=== PATIENT | male | born 1930 | race Caucasian/White ===

== ENCOUNTER 2016-07-22 11:41 | Inpatient (IN) | payer MEDICARE, OTHER ==
[~2016-07-22] VITALS: Ht 185.4 cm; Wt 122.0 kg
[~2016-07-22 11:41] MED LIST: ACET325T9 PO; AMLO2.5T PO; ASPI81TA2 PO; CHOL10003 PO; CITA10TA4 PO; DOCU-27 PO; DONE10TA34 PO; GABA-586 PO; GLUC100018 PO; GUAI-297 PO; HYDR-2666 PO; LEVO100T5 PO; LEVO150T5 PO; LISI2.5T PO; LORA10TA3 PO; MAGN400O4 PO; METO-313 PO; METO25TA9 PO; OMEG1CAP43 PO; ONDA8TAB9 PO
[2016-07-22 17:59] VITALS: BP 197/76
[2016-07-22] MEDS ORDERED: VANCOMYCIN PER PHARMACY MC ONE (18:15)
[2016-07-22] MEDS ORDERED: VANCOMYCIN 2 GM in IV NORMAL SALINE 500ML BAG 500 ML IV ONE (18:30)
[2016-07-22 18:58] LABS: BASO # 0.1 x10^3/uL (0.0-0.2); BASO % 1 % (0-3); EOS % 2 % (0-3); HEMATOCRIT 36.2 % (39.0-53.0); HEMOGLOBIN 12.1 g/dL (13.0-17.5); LYMPH # 0.6 x10^3/uL (1.0-4.8); LYMPH % 7 % (24-48); MEAN CORPUSCULAR HEMOGLOBIN 33 pg (25-35); MEAN CORPUSCULAR HGB CONC 33 g/dL (31-37); MEAN CORPUSCULAR VOLUME 98 fL (79-100); MONO % 12 % (0-9); NEUT % 78 % (31-73); PLATELET COUNT 153 x10^3/uL (140-400); RED BLOOD COUNT 3.71 x10^6/uL (4.30-5.70); RED CELL DISTRIBUTION WIDTH 14.1 % (11.5-14.5)
[2016-07-22 19:00] VITALS: BP 148/73
[2016-07-22] MEDS: VANCOMYCIN PER PHARMACY MC PRN (19:58)
[2016-07-22] MEDS ORDERED: SODIUM PHOSPHATES 19/7GM 133 ML ENEMA. RC PRN (20:00)
[2016-07-22] MEDS ORDERED: MAGNESIUM HYDROXIDE 2,400 MG/30 ML ORAL.SUSP. PO PRN (20:00)
[2016-07-22 20:04] LABS: ALBUMIN 2.7 g/dL (3.4-5.0); ALBUMIN/GLOBULIN RATIO 0.6 (1.0-1.7); CALCIUM 8.3 mg/dL (8.5-10.1); CREATININE 1.5 mg/dL (0.7-1.3); GFR 44.3; POTASSIUM 3.8 mmol/L (3.5-5.1); TOTAL BILIRUBIN 0.7 mg/dL (0.2-1.0)
[2016-07-22] MEDS ORDERED: MAGN400O4 PO (20:07)
[2016-07-22] MEDS ORDERED: AMOX1TAB61 PO (20:07)
[2016-07-22] MEDS ORDERED: LORA10TA68 PO (20:07)
[2016-07-22] MEDS ORDERED: OMEP20TA PO (20:07)
[2016-07-22] MEDS ORDERED: MEMA10TA PO (20:07)
[2016-07-22] MEDS ORDERED: MULT-245 PO (20:07)
[2016-07-22] MEDS ORDERED: NA P133E2 RC (20:07)
[2016-07-22] MEDS: AMOXICILLIN/K CLAV 875/125MG TABLET. PO SCH (21:05)
[2016-07-22] MEDS: HYDROCODONE/APAP 5/325MG TABLET. PO SCH (21:07)
[2016-07-22] MEDS: MEMANTINE 10 MG TABLET. PO SCH (21:07)
[2016-07-22] MEDS: CHOLECALCIFEROL (VITAMIN D3) 1,000 UNIT TABLET PO SCH (21:07)
[2016-07-22 22:30] VITALS: BP 144/59
[2016-07-23 03:00] VITALS: BP_SYST 114; BP_SYST 147; BP_DIAS 67; BP_DIAS 72
[2016-07-23] MEDS: PANTOPRAZOLE 40 MG TABLET.DR. PO SCH (06:06)
[2016-07-23] MEDS: LEVOTHYROXINE 125 MCG TABLET PO SCH (06:07)
[2016-07-23 07:00] VITALS: BP 164/82
--- NOTE | 2016-07-23 08:09 | PDOC ---
GENERAL General: see dictated H&P. Problems: VITAL SIGNS Vital Signs: Vital Signs Date Time Temp Pulse Resp B/P Pulse Ox O2 Delivery O2 Flow Rate FiO2 07/23/16 07:00 98.1 70 16 164/82 95 Room Air 98.1 I & O I & O Intake and Output 07/23/16 07:00 Intake Total 1050 ml Balance 1050 ml Intake Oral 550 ml IV Total 500 ml # Voids 1 ALLERGIES Allergies: Allergies Coded Allergies Type Severity Reaction Last Updated Verified Yppgqms-Zjl-Lhw Reductase Inhibitor Allergy Intermediate 10/31/15 Yes cholestyramine Allergy Intermediate 10/31/15 Yes ezetimibe Allergy Intermediate 10/31/15 Yes niacin Allergy Intermediate 10/31/15 Yes rosuvastatin Allergy Intermediate 04/06/15 Yes simvastatin Allergy Intermediate 04/06/15 Yes MEDS Medications: Current Medications Medications (Trade) Dose Ordered Sig/Samia Start Time Stop Time Status Last Admin Dose Admin Acetaminophen/ Hydrocodone Bitart (Lortab 5/325) 1 tab TID 07/22/16 21:00 07/22/16 21:07 1 TAB Amlodipine Besylate (Norvasc) 2.5 mg DAILY 07/23/16 09:00 Amoxicillin/ Clavulanate Potassium (Augmentin 875/ 125mg) 1 tab BID 07/22/16 21:00 07/22/16 21:05 1 TAB Cetirizine HCl (Zyrtec) 10 mg DAILY 07/23/16 09:00 Docusate Sodium (Colace) 100 mg DAILY 07/23/16 09:00 Levothyroxine Sodium (Synthroid) 125 mcg DAILY07 07/23/16 07:00 07/23/16 06:07 125 MCG Magnesium Hydroxide (Milk Of Magnesia) 400 mg PRN DAILY PRN 07/22/16 20:00 Memantine (Namenda) 10 mg QHS 07/22/16 21:00 07/22/16 21:07 10 MG Metoprolol Succinate (Toprol Xl) 12.5 mg DAILY 07/23/16 09:00 Pantoprazole Sodium (Protonix) 40 mg DAILYAC 07/23/16 07:30 07/23/16 06:06 40 MG Sodium Biphosphate/ Sodium Phosphate (Fleet Adult) 118 ml PRN DAILY PRN 07/22/16 20:00 Vancomycin HCl (Vanco Per Pharmacy) 1 each PRN DAILY PRN 07/22/16 20:00 07/22/16 19:58 1 EACH Vancomycin HCl 1 each 1 each 1X ONCE 07/22/16 18:15 07/22/16 19:54 DC Vancomycin HCl 2 gm/Sodium Chloride 500 ml @ 250 mls/hr 1X ONCE 07/22/16 18:30 07/22/16 20:29 DC 07/22/16 21:05 250 MLS/HR Vancomycin HCl/ Sodium Chloride (Iv Sodium Chloride 0.9% 500ml Bag) 500 ml @ 250 mls/hr Q24H 07/23/16 21:00 Vitamin D (Vitamin D3) 1,000 unit BID 07/22/16 21:00 07/22/16 21:07 1,000 UNIT LAB Lab: Laboratory Tests Test 07/22/16 18:50 White Blood Count 9.0x10^3/uL (4.0-11.0) Red Blood Count 3.71x10^6/uL (4.30-5.70) Hemoglobin 12.1g/dL (13.0-17.5) Hematocrit 36.2% (39.0-53.0) Mean Corpuscular Volume 98fL (79-100) Mean Corpuscular Hemoglobin 33pg (25-35) Mean Corpuscular Hemoglobin Concent 33g/dL (31-37) Red Cell Distribution Width 14.1% (11.5-14.5) Platelet Count 153x10^3/uL (140-400) Neutrophils (%) (Auto) 78% (31-73) Lymphocytes (%) (Auto) 7% (24-48) Monocytes (%) (Auto) 12% (0-9) Eosinophils (%) (Auto) 2% (0-3) Basophils (%) (Auto) 1% (0-3) Neutrophils # (Auto) 7.0x10^3uL (1.8-7.7) Lymphocytes # (Auto) 0.6x10^3/uL (1.0-4.8) Monocytes # (Auto) 1.1x10^3/uL (0.0-1.1) Eosinophils # (Auto) 0.2x10^3/uL (0.0-0.7) Basophils # (Auto) 0.1x10^3/uL (0.0-0.2) Sodium Level 141mmol/L (136-145) Potassium Level 3.8mmol/L (3.5-5.1) Chloride Level 105mmol/L (98-107) Carbon Dioxide Level 24mmol/L (21-32) Anion Gap 12 (6-14) Blood Urea Nitrogen 24mg/dL (8-26) Creatinine 1.5mg/dL (0.7-1.3) Estimated GFR (Cockcroft-Gault) 44.3 BUN/Creatinine Ratio 16 (6-20) Glucose Level 138mg/dL (70-99) Calcium Level 8.3mg/dL (8.5-10.1) Total Bilirubin 0.7mg/dL (0.2-1.0) Aspartate Amino Transf (AST/SGOT) 16U/L (15-37) Alanine Aminotransferase (ALT/SGPT) 22U/L (16-63) Alkaline Phosphatase 70U/L (46-116) Total Protein 7.0g/dL (6.4-8.2) Albumin 2.7g/dL (3.4-5.0) Albumin/Globulin Ratio 0.6 (1.0-1.7) TAMIKO ZAMBRANO MD Jul 23, 2016 08:09
[2016-07-23] MEDS: DOCUSATE SODIUM 100 MG CAPSULE. PO SCH (10:10)
[2016-07-23] MEDS: CHOLECALCIFEROL (VITAMIN D3) 1,000 UNIT TABLET PO SCH ×2 (10:10→20:55)
[2016-07-23] MEDS: AMOXICILLIN/K CLAV 875/125MG TABLET. PO SCH (10:10)
[2016-07-23] MEDS: CETIRIZINE HCL 10 MG TABLET. PO SCH (10:10)
[2016-07-23] MEDS: HYDROCODONE/APAP 5/325MG TABLET. PO SCH ×3 (10:11→20:56)
[2016-07-23] MEDS: AMLODIPINE BESYLATE 2.5 MG TABLET. PO SCH (10:11)
[2016-07-23] MEDS: METOPROLOL SUCC 24HR ER 25 MG TAB.ER.24H. PO SCH (10:11)
--- NOTE | 2016-07-23 10:21 | PDOC ---
Infectious Disease Note ROS ROS GEN: Denies fevers, chills, sweats HEENT: Denies blurred vision, sore throat CV: Denies chest pain RESP: Denies shortness of air, cough GI: Denies n/v/d NEURO: Denies confusion, dizziness MSK: Denies weakness, joint pain/swelling Vital Sign Vital Signs Vital Signs Date Time Temp Pulse Resp B/P Pulse Ox O2 Delivery O2 Flow Rate FiO2 07/23/16 07:00 98.1 70 16 164/82 95 Room Air 98.1 Physical Exam PHYSICAL EXAM GENERAL: NAD, Alert HEENT: PERRL, OC/OP NECK: Supple, no JVD, no LN LUNGS: Clear HEART: S1S2, no gallop, no murmur ABD: Soft, NT, no organomegaly, no rebound EXT: No edema, no cyanosis SECURITY AND COMPLIANCE PROJECT MANAGER: Alert, oriented x 3, no focal neurologic deficit SKIN: No rash IV: ok Labs Lab Laboratory Tests Test 07/22/16 18:50 White Blood Count 9.0x10^3/uL (4.0-11.0) Red Blood Count 3.71x10^6/uL (4.30-5.70) Hemoglobin 12.1g/dL (13.0-17.5) Hematocrit 36.2% (39.0-53.0) Mean Corpuscular Volume 98fL (79-100) Mean Corpuscular Hemoglobin 33pg (25-35) Mean Corpuscular Hemoglobin Concent 33g/dL (31-37) Red Cell Distribution Width 14.1% (11.5-14.5) Platelet Count 153x10^3/uL (140-400) Neutrophils (%) (Auto) 78% (31-73) Lymphocytes (%) (Auto) 7% (24-48) Monocytes (%) (Auto) 12% (0-9) Eosinophils (%) (Auto) 2% (0-3) Basophils (%) (Auto) 1% (0-3) Neutrophils # (Auto) 7.0x10^3uL (1.8-7.7) Lymphocytes # (Auto) 0.6x10^3/uL (1.0-4.8) Monocytes # (Auto) 1.1x10^3/uL (0.0-1.1) Eosinophils # (Auto) 0.2x10^3/uL (0.0-0.7) Basophils # (Auto) 0.1x10^3/uL (0.0-0.2) Sodium Level 141mmol/L (136-145) Potassium Level 3.8mmol/L (3.5-5.1) Chloride Level 105mmol/L (98-107) Carbon Dioxide Level 24mmol/L (21-32) Anion Gap 12 (6-14) Blood Urea Nitrogen 24mg/dL (8-26) Creatinine 1.5mg/dL (0.7-1.3) Estimated GFR (Cockcroft-Gault) 44.3 BUN/Creatinine Ratio 16 (6-20) Glucose Level 138mg/dL (70-99) Calcium Level 8.3mg/dL (8.5-10.1) Total Bilirubin 0.7mg/dL (0.2-1.0) Aspartate Amino Transf (AST/SGOT) 16U/L (15-37) Alanine Aminotransferase (ALT/SGPT) 22U/L (16-63) Alkaline Phosphatase 70U/L (46-116) Total Protein 7.0g/dL (6.4-8.2) Albumin 2.7g/dL (3.4-5.0) Albumin/Globulin Ratio 0.6 (1.0-1.7) Objective Assessment RLE cellulitis Tinea ANUJA H/o MSSA sepsis Severe Dementia Plan Plan of Care Can cont Vanc/Augmentin Add fluconzole F/u labs Elevation/Compression # [id number] FIORELLA DE LA GARZA MD Jul 23, 2016 10:21
--- NOTE | 2016-07-23 10:55 | HP ---
ADMIT DATE: 07/22/2016 CHIEF COMPLAINT AND HISTORY OF PRESENT ILLNESS: This is an 85-year-old white male, resident of [facility]. He has had an ongoing cellulitis, bilateral lower extremities, left greater than right for the last several days, when has not gotten better with p.o. antibiotics there, has admitted at this point in time for IV antibiotics and Infectious Disease consultation. PAST MEDICAL HISTORY: Remarkable for coronary artery disease, hypothyroidism, hypertension, hyperlipidemia, venous stasis edema. PAST SURGICAL HISTORY: Remarkable for prior CABG and prostate surgery. ALLERGIES: INCLUDE STATINS, NIACIN, CRESTOR AND SIMVASTATIN. MEDICATIONS: Brought with the patient, on the computer and have been addressed. SOCIAL HISTORY: He is a nonsmoker, nondrinker, does not drink alcohol, again lives in a prison type setting. FAMILY HISTORY: Positive for heart disease and hypertension. REVIEW OF SYSTEMS: At this point in time is remarkable for no pain in legs. He just generally feels weaker and than usual, but no other specific complaints. PHYSICAL EXAMINATION: GENERAL: He is a well-developed, well-nourished white male in no acute distress at rest. VITAL SIGNS: Stable. He is afebrile. HEENT: Unremarkable. NECK: Supple without any thyromegaly. CHEST: Clear to auscultation and percussion. HEART: Regular rate and rhythm without S3, S4, murmur. ABDOMEN: Soft, nontender, without hepatosplenomegaly or masses. EXTREMITIES: Reveal stasis dermatitis with superimposed cellulitis, left greater than right. NEUROLOGICAL: Nonfocal. IMPRESSION: Failed outpatient treatment of cellulitis of the legs as mentioned above with other problems listed above. PLAN: The patient has been admitted, one dose of IV vancomycin has been given. Infectious Disease has been consulted and the patient will be monitored, managed and treated appropriately. TAMIKO ZAMBRANO MD DR: JENY/shani JOB#: [id number] / [id number]
[2016-07-23 11:00] VITALS: BP 160/74
[2016-07-23] MEDS: VANCOMYCIN PER PHARMACY MC PRN (13:41)
[2016-07-23] MEDS: FLUCONAZOLE 100 MG TABLET. PO SCH (13:43)
[2016-07-23] MEDS: VANCOMYCIN 1.75 GM in IV NORMAL SALINE 500ML BAG 500 ML IV SCH (13:44)
[2016-07-23 15:00] VITALS: BP 164/81
[2016-07-23 19:00] VITALS: BP 140/49
[2016-07-23] MEDS: MEMANTINE 10 MG TABLET. PO SCH (20:56)
[2016-07-23 23:26] VITALS: BP 134/53
--- NOTE | 2016-07-24 01:55 | CONS ---
DATE OF CONSULTATION: 07/23/2016 PATIENT'S ROOM: ____. REQUESTING PHYSICIAN: Dr. Carrasco REASON FOR CONSULTATION: Cellulitis. HISTORY OF PRESENT ILLNESS: The patient is a very pleasant 85-year-old gentleman. However, he has severe dementia and unable to provide a really accurate past medical history or history of present illness. He lives apparently at [facility], based on what is seen in the chart, although he thinks he came from [facility]. He is uncertain why he has been admitted to the hospital, but when asked about his legs he denies any trauma that he knows of and states that he has been having some pain maybe over the last couple of days, but he is uncertain. He has been admitted to [facility] secondary to concern of bilateral lower extremity cellulitis and I have been asked to evaluate him. Currently, he is sitting upright in bed. He was eating some of his breakfast, although he complained that was cold. He denies any fevers or chills. No headaches or sore throat or cough or chest pain. Denies any nausea, vomiting, diarrhea or constipation. No problems passing his urine. Denies any significant pain in his legs. PAST MEDICAL HISTORY: Positive for history of MSSA sepsis back in 2013, history of previous TIAs, dementia, coronary artery disease, prostate cancer, skin cancer on his head, hypothyroidism, myopathy, obesity. PAST SURGICAL HISTORY: Positive for coronary artery bypass grafting as well as prostate and skin cancer removal. REVIEW OF SYSTEMS: Otherwise negative except for as mentioned above. ALLERGIES: LISTED TO STATINS. SOCIAL HISTORY: Again, he is currently living at [facility]. No history of tobacco or alcohol. FAMILY HISTORY: Noncontributory. CURRENT MEDICATIONS: Include vancomycin, Augmentin, amlodipine, Zyrtec, Synthroid, Namenda, Protonix. Other meds are available and reviewed in the chart. PHYSICAL EXAMINATION: VITAL SIGNS: He is afebrile, temperature 98.1, pulse 70, respirations 18, blood pressure 162/82. CONSTITUTIONAL: He is sitting upright in bed. He is cooperative. He is in no acute distress. HEENT: Pupils are equal and reactive. Normal conjunctivae. Oral cavity, pharynx is clear. NECK: Supple, no JVD. LUNGS: Clear to auscultation bilaterally. HEART: S1, S2. ABDOMEN: Soft, protuberant, nontender, nondistended. EXTREMITIES: No clubbing, cyanosis. He has chronic venous stasis changes bilaterally on his lower extremities. His left leg is more swollen and slightly red in comparison to his right. He has 2+ edema on the left, 1+ on the right. He also has tinea. IV site is clean. NEUROLOGIC: He is nonfocal, moves all extremities, although he is demented. PSYCHIATRIC: Affect is appropriate. LABORATORY DATA: White count 9, hemoglobin 12.1, platelets 153 with 78% neutrophils. Creatinine of 1.5. Glucose 138. Normal liver function study tests. There are no radiological or cultures. IMPRESSION: 1. Right lower extremity cellulitis. 2. Tinea. 3. Acute kidney injury. 4. History of methicillin-resistant Staphylococcus aureus sepsis. 5. Severe dementia. RECOMMENDATIONS: For now, continue the vancomycin and Augmentin. We will add fluconazole. Follow up on labs. ____ elevation, may be compression. Thank you for allowing me to participate in this patient's care. If you have any questions, please do not hesitate to contact me. FIORELLA DE LA GARZA MD DR: DAMON/shani JOB#: [id number] / [id number]
[2016-07-24 03:00] VITALS: BP 138/76
[2016-07-24] MEDS: LEVOTHYROXINE 125 MCG TABLET PO SCH (06:21)
[2016-07-24] MEDS: PANTOPRAZOLE 40 MG TABLET.DR. PO SCH (06:21)
[2016-07-24 06:46] LABS: CALCIUM 8.5 mg/dL (8.5-10.1); CREATININE 1.5 mg/dL (0.7-1.3); GFR 44.3; POTASSIUM 4.1 mmol/L (3.5-5.1)
[2016-07-24 07:00] VITALS: BP 170/69
[2016-07-24] MEDS: CETIRIZINE HCL 10 MG TABLET. PO SCH (10:04)
[2016-07-24] MEDS: METOPROLOL SUCC 24HR ER 25 MG TAB.ER.24H. PO SCH (10:04)
[2016-07-24] MEDS: CHOLECALCIFEROL (VITAMIN D3) 1,000 UNIT TABLET PO SCH ×2 (10:05→21:31)
[2016-07-24] MEDS: AMLODIPINE BESYLATE 2.5 MG TABLET. PO SCH (10:05)
[2016-07-24] MEDS: FLUCONAZOLE 100 MG TABLET. PO SCH (10:05)
[2016-07-24] MEDS: HYDROCODONE/APAP 5/325MG TABLET. PO SCH ×3 (10:06→21:31)
[2016-07-24] MEDS: DOCUSATE SODIUM 100 MG CAPSULE. PO SCH (10:06)
[2016-07-24 10:48] VITALS: BP 114/64
--- NOTE | 2016-07-24 11:06 | PDOC ---
Infectious Disease Note Subjective Subjective Doing ok, no complaints. States ate better ROS ROS GEN: Denies fevers, chills, sweats HEENT: Denies blurred vision, sore throat CV: Denies chest pain RESP: Denies shortness of air, cough GI: Denies n/v/d NEURO: Denies confusion, dizziness MSK: Denies weakness, joint pain/swelling Vital Sign Vital Signs Vital Signs Date Time Temp Pulse Resp B/P Pulse Ox O2 Delivery O2 Flow Rate FiO2 07/24/16 10:48 74 18 114/64 96 Room Air 07/24/16 07:00 98.3 98.3 Physical Exam PHYSICAL EXAM GENERAL: NAD, Alert HEENT: PERRL, OC/OP - clear NECK: Supple, no JVD, no LN LUNGS: Clear HEART: S1S2, no gallop, no murmur ABD: Soft, NT, no organomegaly, no rebound EXT: Bilat chronic changes. LLE with some serous drainage. Mild warmth, Less tender KETTLE COORDINATOR: Alert, oriented, no focal neurologic deficit SKIN: No rash IV: ok Labs Lab Laboratory Tests Test 07/24/16 06:10 Sodium Level 142mmol/L (136-145) Potassium Level 4.1mmol/L (3.5-5.1) Chloride Level 105mmol/L (98-107) Carbon Dioxide Level 27mmol/L (21-32) Anion Gap 10 (6-14) Blood Urea Nitrogen 24mg/dL (8-26) Creatinine 1.5mg/dL (0.7-1.3) Estimated GFR (Cockcroft-Gault) 44.3 Glucose Level 107mg/dL (70-99) Calcium Level 8.5mg/dL (8.5-10.1) Objective Assessment RLE cellulitis Tinea ANUJA H/o MSSA sepsis Severe Dementia Plan Plan of Care Cont Vanc/Augmentin/fluconzole F/u labs Elevation/Compression - lymphedema eval D/w nursing re Elevation Reviewed with FIORELLA DE LA GARZA MD Jul 24, 2016 11:06
--- NOTE | 2016-07-24 14:44 | PDOC ---
GENERAL General: vss and afebrile. awake and alert and eating breakfast. legs look about same with little drainage from left leg this am. ID help appreciated. continue same. Problems: VITAL SIGNS Vital Signs: Vital Signs Date Time Temp Pulse Resp B/P Pulse Ox O2 Delivery O2 Flow Rate FiO2 07/24/16 11:12 98.6 Room Air 98.6 07/24/16 11:10 20 93 07/24/16 10:48 74 I & O I & O Intake and Output 07/24/16 07:00 Intake Total 200 ml Balance 200 ml Intake Oral 200 ml # Voids 3 ALLERGIES Allergies: Allergies Coded Allergies Type Severity Reaction Last Updated Verified Owrwiin-Lyw-Rgi Reductase Inhibitor Allergy Intermediate 10/31/15 Yes cholestyramine Allergy Intermediate 10/31/15 Yes ezetimibe Allergy Intermediate 10/31/15 Yes niacin Allergy Intermediate 10/31/15 Yes rosuvastatin Allergy Intermediate 04/06/15 Yes simvastatin Allergy Intermediate 04/06/15 Yes MEDS Medications: Current Medications Medications (Trade) Dose Ordered Sig/Samia Start Time Stop Time Status Last Admin Dose Admin Acetaminophen/ Hydrocodone Bitart (Lortab 5/325) 1 tab TID 07/22/16 21:00 07/24/16 10:06 1 TAB Amlodipine Besylate (Norvasc) 2.5 mg DAILY 07/23/16 09:00 07/24/16 10:05 2.5 MG Amoxicillin/ Clavulanate Potassium (Augmentin 875/ 125mg) 1 tab BID 07/22/16 21:00 07/23/16 13:50 DC 07/23/16 10:10 1 TAB Cetirizine HCl (Zyrtec) 10 mg DAILY 07/23/16 09:00 07/24/16 10:04 10 MG Docusate Sodium (Colace) 100 mg DAILY 07/23/16 09:00 07/24/16 10:06 100 MG Fluconazole (Diflucan) 100 mg DAILY 07/23/16 11:00 07/24/16 10:05 100 MG Levothyroxine Sodium (Synthroid) 125 mcg DAILY07 07/23/16 07:00 07/24/16 06:21 125 MCG Magnesium Hydroxide (Milk Of Magnesia) 400 mg PRN DAILY PRN 07/22/16 20:00 Memantine (Namenda) 10 mg QHS 07/22/16 21:00 07/23/16 20:56 10 MG Metoprolol Succinate (Toprol Xl) 12.5 mg DAILY 07/23/16 09:00 07/24/16 10:04 12.5 MG Pantoprazole Sodium (Protonix) 40 mg DAILYAC 07/23/16 07:30 07/24/16 06:21 40 MG Sodium Biphosphate/ Sodium Phosphate (Fleet Adult) 118 ml PRN DAILY PRN 07/22/16 20:00 Vancomycin HCl (Vanco Per Pharmacy) 1 each PRN DAILY PRN 07/22/16 20:00 07/23/16 13:41 1 EACH Vancomycin HCl 1 each 1 each 1X ONCE 07/22/16 18:15 07/22/16 19:54 DC 07/22/16 18:15 1 EACH Vancomycin HCl 2 gm/Sodium Chloride 500 ml @ 250 mls/hr 1X ONCE 07/22/16 18:30 07/22/16 20:29 DC 07/22/16 21:05 250 MLS/HR Vancomycin HCl/ Sodium Chloride (Iv Sodium Chloride 0.9% 500ml Bag) 500 ml @ 250 mls/hr Q24H 07/23/16 21:00 07/23/16 13:44 250 MLS/HR Vitamin D (Vitamin D3) 1,000 unit BID 07/22/16 21:00 07/24/16 10:05 1,000 UNIT LAB Lab: Laboratory Tests Test 07/24/16 06:10 Sodium Level 142mmol/L (136-145) Potassium Level 4.1mmol/L (3.5-5.1) Chloride Level 105mmol/L (98-107) Carbon Dioxide Level 27mmol/L (21-32) Anion Gap 10 (6-14) Blood Urea Nitrogen 24mg/dL (8-26) Creatinine 1.5mg/dL (0.7-1.3) Estimated GFR (Cockcroft-Gault) 44.3 Glucose Level 107mg/dL (70-99) Calcium Level 8.5mg/dL (8.5-10.1) TAMIKO ZAMBRANO MD Jul 24, 2016 14:44
[2016-07-24 15:03] VITALS: BP 149/78
[2016-07-24] MEDS: VANCOMYCIN PER PHARMACY MC PRN ×2 (16:22→16:27)
[2016-07-24 19:00] VITALS: BP 141/69
[2016-07-24] MEDS: VANCOMYCIN 1.75 GM in IV NORMAL SALINE 500ML BAG 500 ML IV SCH (21:31)
[2016-07-24] MEDS: MEMANTINE 10 MG TABLET. PO SCH (21:31)
[2016-07-24 22:59] VITALS: BP 138/76
[2016-07-25 02:44] VITALS: BP 126/75
[2016-07-25 07:00] VITALS: BP 156/82
[2016-07-25] MEDS: LEVOTHYROXINE 125 MCG TABLET PO SCH (07:09)
--- NOTE | 2016-07-25 08:36 | PDOC ---
Infectious Disease Note Subjective Subjective Doing ok, no complaints. Eating ROS ROS GEN: Denies fevers, chills, sweats HEENT: Denies blurred vision, sore throat CV: Denies chest pain RESP: Denies shortness of air, cough GI: Denies n/v/d NEURO: Denies confusion, dizziness MSK: Denies weakness, joint pain/swelling Vital Sign Vital Signs Vital Signs Date Time Temp Pulse Resp B/P Pulse Ox O2 Delivery O2 Flow Rate FiO2 07/25/16 02:44 98.1 72 18 126/75 98 Room Air 98.1 Physical Exam PHYSICAL EXAM GENERAL: NAD, Alert HEENT: PERRL, OC/OP - clear NECK: Supple, no JVD, no LN LUNGS: Clear HEART: S1S2, no gallop, no murmur ABD: Soft, NT, no organomegaly, no rebound EXT: Bilat chronic changes. LLE with some serous drainage. Mild warmth, Less tender - improved COLOR DIPPER: Alert, oriented, no focal neurologic deficit SKIN: No rash IV: ok Objective Assessment RLE cellulitis Tinea ANUJA H/o MSSA sepsis Severe Dementia Plan Plan of Care Discont Vanc begin po Zyvox Cont fluconzole F/u labs Elevation/Compression - lymphedema eval D/w nursing re Elevation FIORELLA DE LA GARZA MD Jul 25, 2016 08:36
[2016-07-25] MEDS: CETIRIZINE HCL 10 MG TABLET. PO SCH (08:52)
[2016-07-25] MEDS: METOPROLOL SUCC 24HR ER 25 MG TAB.ER.24H. PO SCH (08:53)
[2016-07-25] MEDS: FLUCONAZOLE 100 MG TABLET. PO SCH (08:53)
[2016-07-25] MEDS: PANTOPRAZOLE 40 MG TABLET.DR. PO SCH (08:53)
[2016-07-25] MEDS: LINEZOLID 600 MG TABLET PO SCH (08:53)
[2016-07-25] MEDS: AMLODIPINE BESYLATE 2.5 MG TABLET. PO SCH (08:54)
[2016-07-25] MEDS: CHOLECALCIFEROL (VITAMIN D3) 1,000 UNIT TABLET PO SCH (08:54)
[2016-07-25] MEDS: HYDROCODONE/APAP 5/325MG TABLET. PO SCH ×2 (08:54→14:00)
[2016-07-25] MEDS: DOCUSATE SODIUM 100 MG CAPSULE. PO SCH (08:55)
[2016-07-25 11:07] VITALS: BP 170/72
[2016-07-25 14:55] VITALS: BP 168/87
--- NOTE | 2016-07-25 17:27 | PDOC ---
GENERAL General: vss and afebrile. awake and alert and without complaints. ID help appreciated. ongoing iv antibiotics. blood pressures consistently elevated and will increase norvasc to 5 mg daily. Problems: VITAL SIGNS Vital Signs: Vital Signs Date Time Temp Pulse Resp B/P Pulse Ox O2 Delivery O2 Flow Rate FiO2 07/25/16 14:55 98.5 77 18 168/87 93 Room Air 98.5 I & O I & O Intake and Output 07/25/16 07:00 Intake Total 550 ml Balance 550 ml Intake Oral 50 ml IV Total 500 ml # Voids 3 ALLERGIES Allergies: Allergies Coded Allergies Type Severity Reaction Last Updated Verified Gjijbrd-Dit-Yho Reductase Inhibitor Allergy Intermediate 10/31/15 Yes cholestyramine Allergy Intermediate 10/31/15 Yes ezetimibe Allergy Intermediate 10/31/15 Yes niacin Allergy Intermediate 10/31/15 Yes rosuvastatin Allergy Intermediate 04/06/15 Yes simvastatin Allergy Intermediate 04/06/15 Yes MEDS Medications: Current Medications Medications (Trade) Dose Ordered Sig/Samia Start Time Stop Time Status Last Admin Dose Admin Acetaminophen/ Hydrocodone Bitart (Lortab 5/325) 1 tab TID 07/22/16 21:00 07/25/16 08:54 1 TAB Amlodipine Besylate (Norvasc) 2.5 mg DAILY 07/23/16 09:00 07/25/16 08:54 2.5 MG Amoxicillin/ Clavulanate Potassium (Augmentin 875/ 125mg) 1 tab BID 07/22/16 21:00 07/23/16 13:50 DC 07/23/16 10:10 1 TAB Cetirizine HCl (Zyrtec) 10 mg DAILY 07/23/16 09:00 07/25/16 08:52 10 MG Docusate Sodium (Colace) 100 mg DAILY 07/23/16 09:00 07/25/16 08:55 100 MG Fluconazole (Diflucan) 100 mg DAILY 07/23/16 11:00 07/25/16 08:53 100 MG Levothyroxine Sodium (Synthroid) 125 mcg DAILY07 07/23/16 07:00 07/25/16 07:09 125 MCG Linezolid (Zyvox) 600 mg BID 07/25/16 09:00 07/25/16 08:53 600 MG Magnesium Hydroxide (Milk Of Magnesia) 400 mg PRN DAILY PRN 4/18/17 20:00 Memantine (Namenda) 10 mg QHS 07/22/16 21:00 07/24/16 21:31 10 MG Metoprolol Succinate (Toprol Xl) 12.5 mg DAILY 07/23/16 09:00 07/25/16 08:53 12.5 MG Pantoprazole Sodium (Protonix) 40 mg DAILYAC 07/23/16 07:30 07/25/16 08:53 40 MG Sodium Biphosphate/ Sodium Phosphate (Fleet Adult) 118 ml PRN DAILY PRN 07/22/16 20:00 Vancomycin HCl (Vanco Per Pharmacy) 1 each PRN DAILY PRN 07/22/16 20:00 07/25/16 08:35 DC 07/24/16 16:27 1 EACH Vancomycin HCl 1 each 1 each 1X ONCE 07/22/16 18:15 07/22/16 19:54 DC 07/22/16 18:15 1 EACH Vancomycin HCl 2 gm/Sodium Chloride 500 ml @ 250 mls/hr 1X ONCE 07/22/16 18:30 07/22/16 20:29 DC 07/22/16 21:05 250 MLS/HR Vancomycin HCl/ Sodium Chloride (Iv Sodium Chloride 0.9% 500ml Bag) 500 ml @ 250 mls/hr Q24H 07/23/16 21:00 07/25/16 08:35 DC 07/24/16 21:31 250 MLS/HR Vitamin D (Vitamin D3) 1,000 unit BID 07/22/16 21:00 07/25/16 08:54 1,000 UNIT TAMIKO ZAMBRANO MD Jul 25, 2016 17:27
[2016-07-25 19:00] VITALS: BP_SYST 121; BP_SYST 146; BP_DIAS 62; BP_DIAS 67
[2016-07-25 23:05] VITALS: BP 123/57
[2016-07-26] VITALS (7 sets, daily range): BP systolic 122–180; BP diastolic 62–94
[2016-07-26] MEDS: LINEZOLID 600 MG TABLET PO SCH ×3 (00:44→20:26)
[2016-07-26] MEDS: CHOLECALCIFEROL (VITAMIN D3) 1,000 UNIT TABLET PO SCH ×3 (00:44→20:26)
[2016-07-26] MEDS: MEMANTINE 10 MG TABLET. PO SCH ×2 (00:44→20:26)
[2016-07-26] MEDS: HYDROCODONE/APAP 5/325MG TABLET. PO SCH ×4 (00:45→20:26)
[2016-07-26] MEDS: LEVOTHYROXINE 125 MCG TABLET PO SCH (06:24)
--- NOTE | 2016-07-26 08:44 | PDOC ---
GENERAL General: vss and afebrile. awake and alert and eating breakfast. legs do look better. ID help appreciated. could go back to alf when ID feels ok and will have social media strategist make sure that zyvox would be paid for at md. Problems: VITAL SIGNS Vital Signs: Vital Signs Date Time Temp Pulse Resp B/P Pulse Ox O2 Delivery O2 Flow Rate FiO2 07/26/16 07:00 98.5 60 16 159/93 94 Room Air 98.5 I & O I & O Intake and Output 07/26/16 06:59 Intake Total 380 ml Balance 380 ml Intake Oral 380 ml # Voids 5 ALLERGIES Allergies: Allergies Coded Allergies Type Severity Reaction Last Updated Verified Cnvfuhi-Wxv-Htf Reductase Inhibitor Allergy Intermediate 10/31/15 Yes cholestyramine Allergy Intermediate 10/31/15 Yes ezetimibe Allergy Intermediate 10/31/15 Yes niacin Allergy Intermediate 10/31/15 Yes rosuvastatin Allergy Intermediate 04/06/15 Yes simvastatin Allergy Intermediate 04/06/15 Yes MEDS Medications: Current Medications Medications (Trade) Dose Ordered Sig/Samia Start Time Stop Time Status Last Admin Dose Admin Acetaminophen/ Hydrocodone Bitart (Lortab 5/325) 1 tab TID 07/22/16 21:00 07/26/16 00:45 1 TAB Amlodipine Besylate (Norvasc) 5 mg DAILY 07/26/16 09:00 Amoxicillin/ Clavulanate Potassium (Augmentin 875/ 125mg) 1 tab BID 07/22/16 21:00 07/23/16 13:50 DC 07/23/16 10:10 1 TAB Cetirizine HCl (Zyrtec) 10 mg DAILY 07/23/16 09:00 07/25/16 08:52 10 MG Docusate Sodium (Colace) 100 mg DAILY 07/23/16 09:00 07/25/16 08:55 100 MG Fluconazole (Diflucan) 100 mg DAILY 07/23/16 11:00 07/25/16 08:53 100 MG Levothyroxine Sodium (Synthroid) 125 mcg DAILY07 07/23/16 07:00 07/26/16 06:24 125 MCG Linezolid (Zyvox) 600 mg BID 07/25/16 09:00 07/26/16 00:44 600 MG Magnesium Hydroxide (Milk Of Magnesia) 400 mg PRN DAILY PRN 07/22/16 20:00 Memantine (Namenda) 10 mg QHS 07/22/16 21:00 07/26/16 00:44 10 MG Metoprolol Succinate (Toprol Xl) 12.5 mg DAILY 07/23/16 09:00 07/25/16 08:53 12.5 MG Pantoprazole Sodium (Protonix) 40 mg DAILYAC 07/23/16 07:30 07/25/16 08:53 40 MG Sodium Biphosphate/ Sodium Phosphate (Fleet Adult) 118 ml PRN DAILY PRN 07/22/16 20:00 Vancomycin HCl (Vanco Per Pharmacy) 1 each PRN DAILY PRN 07/22/16 20:00 07/25/16 08:35 DC 07/24/16 16:27 1 EACH Vancomycin HCl 1 each 1 each 1X ONCE 07/22/16 18:15 07/22/16 19:54 DC 07/22/16 18:15 1 EACH Vancomycin HCl 2 gm/Sodium Chloride 500 ml @ 250 mls/hr 1X ONCE 07/22/16 18:30 07/22/16 20:29 DC 07/22/16 21:05 250 MLS/HR Vancomycin HCl/ Sodium Chloride (Iv Sodium Chloride 0.9% 500ml Bag) 500 ml @ 250 mls/hr Q24H 07/23/16 21:00 07/25/16 08:35 DC 07/24/16 21:31 250 MLS/HR Vitamin D (Vitamin D3) 1,000 unit BID 07/22/16 21:00 07/26/16 00:44 1,000 UNIT TAMIKO ZAMBRANO MD Jul 26, 2016 08:44
[2016-07-26] MEDS: CETIRIZINE HCL 10 MG TABLET. PO SCH (08:49)
[2016-07-26] MEDS: FLUCONAZOLE 100 MG TABLET. PO SCH (08:49)
[2016-07-26] MEDS: AMLODIPINE BESYLATE 5 MG TABLET. PO SCH (08:49)
[2016-07-26] MEDS: PANTOPRAZOLE 40 MG TABLET.DR. PO SCH (08:49)
[2016-07-26] MEDS: METOPROLOL SUCC 24HR ER 25 MG TAB.ER.24H. PO SCH (08:50)
[2016-07-26] MEDS: DOCUSATE SODIUM 100 MG CAPSULE. PO SCH (09:00)
[2016-07-27] MEDS: LEVOTHYROXINE 125 MCG TABLET PO SCH (05:50)
[2016-07-27 07:00] VITALS: BP 161/82
[2016-07-27] MEDS: DOCUSATE SODIUM 100 MG CAPSULE. PO SCH (08:38)
[2016-07-27] MEDS: LINEZOLID 600 MG TABLET PO SCH ×2 (08:38→20:41)
[2016-07-27] MEDS: PANTOPRAZOLE 40 MG TABLET.DR. PO SCH (08:38)
[2016-07-27] MEDS: FLUCONAZOLE 100 MG TABLET. PO SCH (08:38)
[2016-07-27] MEDS: CETIRIZINE HCL 10 MG TABLET. PO SCH (08:38)
[2016-07-27] MEDS: CHOLECALCIFEROL (VITAMIN D3) 1,000 UNIT TABLET PO SCH ×2 (08:38→20:41)
[2016-07-27] MEDS: AMLODIPINE BESYLATE 5 MG TABLET. PO SCH (08:38)
[2016-07-27] MEDS: METOPROLOL SUCC 24HR ER 25 MG TAB.ER.24H. PO SCH (08:39)
[2016-07-27] MEDS: HYDROCODONE/APAP 5/325MG TABLET. PO SCH ×3 (08:42→20:41)
--- NOTE | 2016-07-27 10:36 | PDOC ---
GENERAL General: vss and afebrile. awake and alert and pleasantly confused. legs are improving. plan dc back to [facility] am on present meds. Problems: VITAL SIGNS Vital Signs: Vital Signs Date Time Temp Pulse Resp B/P Pulse Ox O2 Delivery O2 Flow Rate FiO2 07/27/16 08:39 71 161/82 07/27/16 08:00 Room Air 07/27/16 07:00 98.6 14 94 98.6 I & O I & O Intake and Output 07/27/16 07:00 Intake Total 1110 ml Balance 1110 ml Intake Oral 1110 ml # Voids 1 ALLERGIES Allergies: Allergies Coded Allergies Type Severity Reaction Last Updated Verified Jgmvhis-Bfq-Rcj Reductase Inhibitor Allergy Intermediate 10/31/15 Yes cholestyramine Allergy Intermediate 10/31/15 Yes ezetimibe Allergy Intermediate 10/31/15 Yes niacin Allergy Intermediate 10/31/15 Yes rosuvastatin Allergy Intermediate 04/06/15 Yes simvastatin Allergy Intermediate 04/06/15 Yes MEDS Medications: Current Medications Medications (Trade) Dose Ordered Sig/Samia Start Time Stop Time Status Last Admin Dose Admin Acetaminophen/ Hydrocodone Bitart (Lortab 5/325) 1 tab TID 07/22/16 21:00 07/26/16 20:26 1 TAB Amlodipine Besylate (Norvasc) 5 mg DAILY 07/26/16 09:00 07/27/16 08:38 5 MG Amoxicillin/ Clavulanate Potassium (Augmentin 875/ 125mg) 1 tab BID 07/22/16 21:00 07/23/16 13:50 DC 07/23/16 10:10 1 TAB Cetirizine HCl (Zyrtec) 10 mg DAILY 07/23/16 09:00 07/27/16 08:38 10 MG Docusate Sodium (Colace) 100 mg DAILY 07/23/16 09:00 07/27/16 08:38 100 MG Fluconazole (Diflucan) 100 mg DAILY 07/23/16 11:00 07/27/16 08:38 100 MG Levothyroxine Sodium (Synthroid) 125 mcg DAILY07 07/23/16 07:00 07/27/16 05:50 125 MCG Linezolid (Zyvox) 600 mg BID 07/25/16 09:00 07/27/16 08:38 600 MG Magnesium Hydroxide (Milk Of Magnesia) 400 mg PRN DAILY PRN 07/22/16 20:00 Memantine (Namenda) 10 mg QHS 07/22/16 21:00 07/26/16 20:26 10 MG Metoprolol Succinate (Toprol Xl) 12.5 mg DAILY 07/23/16 09:00 07/27/16 08:39 12.5 MG Pantoprazole Sodium (Protonix) 40 mg DAILYAC 07/23/16 07:30 07/27/16 08:38 40 MG Sodium Biphosphate/ Sodium Phosphate (Fleet Adult) 118 ml PRN DAILY PRN 07/22/16 20:00 Vancomycin HCl (Vanco Per Pharmacy) 1 each PRN DAILY PRN 07/22/16 20:00 07/25/16 08:35 DC 07/24/16 16:27 1 EACH Vancomycin HCl 1 each 1 each 1X ONCE 07/22/16 18:15 07/22/16 19:54 DC 07/22/16 18:15 1 EACH Vancomycin HCl 2 gm/Sodium Chloride 500 ml @ 250 mls/hr 1X ONCE 07/22/16 18:30 07/22/16 20:29 DC 07/22/16 21:05 250 MLS/HR Vancomycin HCl/ Sodium Chloride (Iv Sodium Chloride 0.9% 500ml Bag) 500 ml @ 250 mls/hr Q24H 07/23/16 21:00 07/25/16 08:35 DC 07/24/16 21:31 250 MLS/HR Vitamin D (Vitamin D3) 1,000 unit BID 07/22/16 21:00 07/27/16 08:38 1,000 UNIT TAMIKO ZAMBRANO MD Jul 27, 2016 10:36
[2016-07-27 11:00] VITALS: BP 136/70
[2016-07-27 15:00] VITALS: BP 140/76
[2016-07-27 19:30] VITALS: BP 125/80
[2016-07-27] MEDS: MEMANTINE 10 MG TABLET. PO SCH (20:42)
[2016-07-27 23:02] VITALS: BP 112/60
[2016-07-28 03:05] VITALS: BP 144/72
[2016-07-28] MEDS: LEVOTHYROXINE 125 MCG TABLET PO SCH (05:45)
[2016-07-28 07:00] VITALS: BP 137/80
--- NOTE | 2016-07-28 08:34 | PDOC ---
GENERAL General: see discharge summary. Problems: VITAL SIGNS Vital Signs: Vital Signs Date Time Temp Pulse Resp B/P Pulse Ox O2 Delivery O2 Flow Rate FiO2 07/28/16 07:00 97.7 69 18 137/80 92 Room Air 97.7 I & O I & O Intake and Output 07/28/16 06:59 Intake Total 480 ml Balance 480 ml Intake Oral 480 ml # Voids 6 ALLERGIES Allergies: Allergies Coded Allergies Type Severity Reaction Last Updated Verified Xulsacs-Dqz-Bbu Reductase Inhibitor Allergy Intermediate 10/31/15 Yes cholestyramine Allergy Intermediate 10/31/15 Yes ezetimibe Allergy Intermediate 10/31/15 Yes niacin Allergy Intermediate 10/31/15 Yes rosuvastatin Allergy Intermediate 04/06/15 Yes simvastatin Allergy Intermediate 04/06/15 Yes MEDS Medications: Current Medications Medications (Trade) Dose Ordered Sig/Samia Start Time Stop Time Status Last Admin Dose Admin Acetaminophen/ Hydrocodone Bitart (Lortab 5/325) 1 tab TID 07/22/16 21:00 07/27/16 20:41 1 TAB Amlodipine Besylate (Norvasc) 5 mg DAILY 07/26/16 09:00 07/27/16 08:38 5 MG Amoxicillin/ Clavulanate Potassium (Augmentin 875/ 125mg) 1 tab BID 07/22/16 21:00 07/23/16 13:50 DC 07/23/16 10:10 1 TAB Cetirizine HCl (Zyrtec) 10 mg DAILY 07/23/16 09:00 07/27/16 08:38 10 MG Docusate Sodium (Colace) 100 mg DAILY 07/23/16 09:00 07/27/16 08:38 100 MG Fluconazole (Diflucan) 100 mg DAILY 07/23/16 11:00 07/27/16 08:38 100 MG Levothyroxine Sodium (Synthroid) 125 mcg DAILY07 07/23/16 07:00 07/28/16 05:45 125 MCG Linezolid (Zyvox) 600 mg BID 07/25/16 09:00 07/27/16 20:41 600 MG Magnesium Hydroxide (Milk Of Magnesia) 400 mg PRN DAILY PRN 07/22/16 20:00 Memantine (Namenda) 10 mg QHS 07/22/16 21:00 07/27/16 20:42 10 MG Metoprolol Succinate (Toprol Xl) 12.5 mg DAILY 07/23/16 09:00 07/27/16 08:39 12.5 MG Pantoprazole Sodium (Protonix) 40 mg DAILYAC 07/23/16 07:30 07/27/16 08:38 40 MG Sodium Biphosphate/ Sodium Phosphate (Fleet Adult) 118 ml PRN DAILY PRN 07/22/16 20:00 Vancomycin HCl (Vanco Per Pharmacy) 1 each PRN DAILY PRN 07/22/16 20:00 07/25/16 08:35 DC 07/24/16 16:27 1 EACH Vancomycin HCl 1 each 1 each 1X ONCE 07/22/16 18:15 07/22/16 19:54 DC 07/22/16 18:15 1 EACH Vancomycin HCl 2 gm/Sodium Chloride 500 ml @ 250 mls/hr 1X ONCE 07/22/16 18:30 07/22/16 20:29 DC 07/22/16 21:05 250 MLS/HR Vancomycin HCl/ Sodium Chloride (Iv Sodium Chloride 0.9% 500ml Bag) 500 ml @ 250 mls/hr Q24H 07/23/16 21:00 07/25/16 08:35 DC 07/24/16 21:31 250 MLS/HR Vitamin D (Vitamin D3) 1,000 unit BID 07/22/16 21:00 07/27/16 20:41 1,000 UNIT TAMIKO ZAMBRANO MD Jul 28, 2016 08:34
[2016-07-28] MEDS: METOPROLOL SUCC 24HR ER 25 MG TAB.ER.24H. PO SCH (09:31)
[2016-07-28] MEDS: CHOLECALCIFEROL (VITAMIN D3) 1,000 UNIT TABLET PO SCH (09:31)
[2016-07-28] MEDS: HYDROCODONE/APAP 5/325MG TABLET. PO SCH (09:32)
[2016-07-28] MEDS: DOCUSATE SODIUM 100 MG CAPSULE. PO SCH (09:32)
[2016-07-28] MEDS: AMLODIPINE BESYLATE 5 MG TABLET. PO SCH (09:32)
[2016-07-28] MEDS: FLUCONAZOLE 100 MG TABLET. PO SCH (09:32)
[2016-07-28] MEDS: PANTOPRAZOLE 40 MG TABLET.DR. PO SCH (09:32)
[2016-07-28] MEDS: LINEZOLID 600 MG TABLET PO SCH (09:33)
[2016-07-28] MEDS: CETIRIZINE HCL 10 MG TABLET. PO SCH (09:33)
[2016-07-28 11:11] VITALS: BP 124/78
--- NOTE | 2016-07-29 02:19 | DS ---
DATE OF DISCHARGE: 07/28/2016 PRIMARY DIAGNOSIS: Cellulitis of the legs with failed outpatient treatment of the same. ADDITIONAL DIAGNOSES: Coronary artery disease, hypothyroidism, hypertension, hyperlipidemia, venous stasis edema. CHIEF COMPLAINT AND HISTORY OF PRESENT ILLNESS: This is an 85-year-old white male, resident of [facility], was not getting better with p.o. treatment of his cellulitis of lower extremities and admitted for IV antibiotic therapy. SUMMARY OF STAY: The patient was admitted. ID followed along. He was placed on broad-spectrum antibiotics and eventually tapered down to p.o. Diflucan on Zyvox. There was improvement in his legs as well as his edema during the stay. It was felt he could go and complete another two days of both at the longterm and discharge was arranged. DISPOSITION: The patient was discharged back to longterm. ACTIVITY: As tolerated. ACTIVITY: As tolerated. DISCHARGE MEDICATIONS: He is to resume his regular prehospital medications. In addition, we will be taking the Zyvox 600 b.i.d. for 2 days and Diflucan 100 daily to the next 2 days. TAMIKO ZAMBRANO MD DR: JENY/shani JOB#: [id number] / [id number]
--- NOTE | 2016-07-30 16:43 | ACF ---
Admission Forms Criteria CELLULITIS Clinical Indications for Admission to Inpatient Care (Place 'X' for any and all applicable criteria): Admission is indicated for ANY ONE of the following(1)(2)(3)(4)(5): [ ]I. Limb-threatening infection [ ]II. High-risk comorbid condition as indicated by ANY ONE of the following: [ ]a) Uncontrolled diabetes (eg, HbA1c greater than 10% (0.1)) [ ]b) Cirrhosis [ ]c) Neutropenia [ ]d) Asplenia [ ]e) Immunosuppression [ ]f) Symptomatic heart failure [X]III. Failure of outpatient therapy as indicated by ALL of the following: [X]a) Progression or no improvement after adequate trial (minimum of 48 hours, with longer period for stable lower extremity infection) [X]b) Adequate antibiotic regimen as indicated by use of ANY ONE of the following: [ ]i) First-generation cephalosporin (e.g., cephalexin) [ ]ii) Antistaphylococcal penicillin (e.g., dicloxacillin) [ ]iii) Penicillin-allergic patient regimen (clindamycin, extended-spectrum fluoroquinolone, or doxycycline) [X]iv) Resistant organism (eg, methicillin-resistant Staphylococcus aureus) regimen (6) [X]c) Outpatient intravenous therapy regimen is not appropriate due to ANY ONE of the following. (7)(8)(9)(10): [ ]i) It was tried and was not successful (eg, progression of infection). [X]ii) It is not available or cannot be arranged in a clinically appropriate time frame (e.g., the next day). [X]iii) Clinical presentation (eg, acuity of infection, rapidity of progression, confirmed or suspected bacteremia) is judged to require ALL of the following: [X]1) Immediate initiation of intravenous therapy ( eg, cannot wait for next day) [X]2) Intensity of patient monitoring and observation (eg, vital sign measurement, checks for infection progression) that cannot be provided at other than inpatient level of care [ ]IV. Mental status changes [ ]V. Bacteremia [ ]. Hemodynamic instability [ ]VII. Suspected necrotizing soft tissue infection (e.g., gas in tissue)(11)( 12) [ ]VIII. Orbital infection (13)(14) [ ]IX. Associated surgical procedure (e.g., abscess drainage, debridement) not amenable to outpatient, emergency department, or observation care [ ]X. Cutaneous gangrene [ ]XI. High fever (temperature greater than 39.5 degrees C (103.1 degrees F) (oral)) not responsive to outpatient, emergency department, or observation care therapy [ ]XIII. Inpatient admission required rather than observation care (Also use Cellulitis: Observation Care as appropriate) because of ANY ONE of the following : [ ]a) Periorbital or perineal infection that is severe or worsening [ ]b) Severe pain requiring acute inpatient management [ ]c) IV fluid to replace significant ongoing (e.g., for over 24 hours) losses (greater than 3L/m2 per day) [ ]d) Compartment syndrome monitoring (17) [ ]e) Strict or protective (eg, laminar flow) isolation [ ]f) Urgent debridement or skin grafting [ ]g) Bone or joint debridement [ ]h) Immediate inpatient surgery [ ]i) Other condition, treatment or monitoring requiring inpatient admission Extended stay beyond goal length of stay may be needed for (1)(18): [ ]a) Necrotizing soft tissue infection or fasciitis [ ]b) Gram-negative infection [ ]c) Methicillin-resistant Staphylococcal aureus (MRSA) infection [ ]d) Peripheral venous insufficiency with cellulitis [ ]e) Extensive edema [ ]f) Sepsis or continued Hemodynamic instability [ ]g) Continued high fever or mental status change [ ]h) Bacteremia [ ]i) Active serious comorbid conditions ( eg, heart failure, renal insufficiency) The original [facility] content created by [employer] has been revised. The portions of the content which have been revised are identified through the use of italic text or in bold, and [facility] has neither reviewed nor approved the modified material. All other unmodified content is copyright [facility] Please see references footnoted in the original [facility] [email or web address] edition 2016 Admission Criteria Met?: Yes CHANDAN GOLDEN Jul 30, 2016 16:43
== END 2016-07-28 16:00 | disposition home or self-care (01) | DRG 603 ==
LOC: 5 SOUTH 13:14
PROVIDERS: ADMIT Family Medicine; ATTEND Family Medicine
DX: L03.115 Cellulitis of right lower limb (principal); N17.9 Acute kidney failure, unspecified; E44.0 Moderate protein-calorie malnutrition; E03.9 Hypothyroidism, unspecified; E78.5 Hyperlipidemia, unspecified; F03.90 Unspecified dementia, unspecified severity, without behavioral disturbance, psychotic disturbance, mood disturbance, and anxiety; E66.9 Obesity, unspecified; B35.9 Dermatophytosis, unspecified; I25.10 Atherosclerotic heart disease of native coronary artery without angina pectoris; I87.8 Other specified disorders of veins; Z82.49 Family history of ischemic heart disease and other diseases of the circulatory system; Z85.46 Personal history of malignant neoplasm of prostate; Z85.828 Personal history of other malignant neoplasm of skin; Z86.14 Personal history of Methicillin resistant Staphylococcus aureus infection; Z86.19 Personal history of other infectious and parasitic diseases; Z86.73 Personal history of transient ischemic attack (TIA), and cerebral infarction without residual deficits; Z95.1 Presence of aortocoronary bypass graft; Z88.8 Allergy status to other drugs, medicaments and biological substances; Z79.899 Other long term (current) drug therapy; Z68.35 Body mass index [BMI] 35.0-35.9, adult; I12.9 Hypertensive chronic kidney disease with stage 1 through stage 4 chronic kidney disease, or unspecified chronic kidney disease; N18.3 Chronic kidney disease, stage 3 (moderate)
CPT/HCPCS: 36415; 80048; 80053; 85027; 87641; J3370; J7040; 97110; 97140

== ENCOUNTER 2016-08-08 11:40 | Observation (INO) | payer MEDICARE, OTHER ==
[~2016-08-08] VITALS: Ht 185.4 cm; Wt 122.2 kg
[~2016-08-08 11:40] MED LIST changes: +AMOX1TAB61 PO; +LORA10TA68 PO; +MEMA10TA PO; +MULT-245 PO; +NA P133E2 RC; +OMEP20TA PO
--- NOTE | 2016-08-08 12:20 | PHYS DOC ---
Past Medical History Past Medical History: Arthritis, CAD, Cancer, Dementia, GERD, High Cholesterol , Hypertension, Hypothyroid, Other Additional Past Medical Histor: SKIN CA, NEUROPATHY; cellulitis Past Surgical History: Other Additional Past Surgical Histo: multiple bypass surgeries then a quad bypass, prostectomy Alcohol Use: Occasionally Drug Use: None Adult General Chief Complaint Chief Complaint: SEIZURE HPI HPI 85-year-old male presenting to the emergency Department with reported seizure activity around 11:00 this morning. Patient lives in a long-term care facility and staff there report the patient had tonic clonic jerking of his upper and lower extremities with loss of consciousness. They denied him having head trauma. He denies biting his tongue or urinary or fecal incontinence. He does not have a known history of seizures. He has a history of hyperlipidemia neoplasm of the prostate hypothyroidism GERD anemia coronary artery disease. Onset today. Location brain. Duration intermittent. No alleviating factors present. Review of systems is negative for chest pain shortness of breath nausea vomiting fevers chills abdominal pain. He denies diarrhea. He denies rashes. All other review of systems is negative unless otherwise noted in history of present illness. Review of Systems Review of Systems SEE ABOVE. Current Medications Current Medications Current Medications Medications (Trade) Dose Ordered Sig/Samia Start Time Stop Time Status Last Admin Dose Admin Morphine Sulfate 2 mg PRN Q2HR PRN 08/08/16 13:00 08/09/16 12:59 Ondansetron HCl (Zofran) 4 mg PRN Q8HRS PRN 08/08/16 13:00 08/09/16 12:59 Allergies Allergies Allergies Coded Allergies Type Severity Reaction Last Updated Verified Rarvuzg-Hqf-Axd Reductase Inhibitor Allergy Intermediate 10/31/15 Yes cholestyramine Allergy Intermediate 10/31/15 Yes ezetimibe Allergy Intermediate 10/31/15 Yes niacin Allergy Intermediate 10/31/15 Yes rosuvastatin Allergy Intermediate 04/06/15 Yes simvastatin Allergy Intermediate 04/06/15 Yes Physical Exam Physical Exam Constitutional: Well developed, well nourished, no acute distress, non-toxic appearance. HENT: Normocephalic, atraumatic, bilateral external ears normal, oropharynx moist, no oral exudates, nose normal. [] Eyes: PERRLA, EOMI, conjunctiva normal, no discharge. Neck: Normal range of motion, no tenderness, supple, no stridor. [] Cardiovascular:Heart rate regular rhythm, no murmur Lungs & Thorax: Bilateral breath sounds clear to auscultation [] Abdomen: Bowel sounds normal, soft, no tenderness, no masses, no pulsatile masses. Skin: Warm, dry, no erythema, no rash. [] Back: No tenderness, no CVA tenderness. Extremities: No tenderness, no cyanosis, no clubbing, ROM intact, no edema. Neurologic: Mental status: Awake oriented and alert x3 Cranial nerves: Extraocular movements intact, eyebrows robby bilaterally , the patient's smile is asymmetric with slight facial droop of the right side not involving the forehead (symmetric forehead rise), uvula elevation, shoulder shrug intact, tongue protrusion normal DTRs: 2+ Sensation: equal and normal in all extremities Strength: 5/5 in upper and lower extremities bilaterally Psychologic: Affect normal, judgement normal, mood normal. [] Current Patient Data Vital Signs Vital Signs Date Time Temp Pulse Resp B/P (MAP) Pulse Ox O2 Delivery O2 Flow Rate FiO2 08/08/16 11:42 98.2 68 18 110/60 (77) 96 Room Air 98.2 Lab Values Laboratory Tests Test 08/08/16 11:54 08/08/16 12:15 White Blood Count 7.5 x10^3/uL (4.0-11.0) Red Blood Count 4.08 x10^6/uL (4.30-5.70) L Hemoglobin 13.2 g/dL (13.0-17.5) Hematocrit 40.4 % (39.0-53.0) Mean Corpuscular Volume 99 fL (79-100) Mean Corpuscular Hemoglobin 32 pg (25-35) Mean Corpuscular Hemoglobin Concent 33 g/dL (31-37) Red Cell Distribution Width 14.7 % (11.5-14.5) H Platelet Count 215 x10^3/uL (140-400) Neutrophils (%) (Auto) 72 % (31-73) Lymphocytes (%) (Auto) 14 % (24-48) L Monocytes (%) (Auto) 13 % (0-9) H Eosinophils (%) (Auto) 1 % (0-3) Basophils (%) (Auto) 1 % (0-3) Neutrophils # (Auto) 5.4 x10^3uL (1.8-7.7) Lymphocytes # (Auto) 1.0 x10^3/uL (1.0-4.8) Monocytes # (Auto) 0.9 x10^3/uL (0.0-1.1) Eosinophils # (Auto) 0.1 x10^3/uL (0.0-0.7) Basophils # (Auto) 0.1 x10^3/uL (0.0-0.2) Sodium Level 139 mmol/L (136-145) Potassium Level 4.4 mmol/L (3.5-5.1) Chloride Level 104 mmol/L (98-107) Carbon Dioxide Level 25 mmol/L (21-32) Anion Gap 10 (6-14) Blood Urea Nitrogen 29 mg/dL (8-26) H Creatinine 1.5 mg/dL (0.7-1.3) H Estimated GFR (Cockcroft-Gault) 44.3 Glucose Level 117 mg/dL (70-99) H Calcium Level 8.9 mg/dL (8.5-10.1) Total Bilirubin 0.4 mg/dL (0.2-1.0) Direct Bilirubin 0.1 mg/dL (0.0-0.2) Aspartate Amino Transferase (AST) 28 U/L (15-37) Alanine Aminotransferase (ALT) 23 U/L (16-63) Alkaline Phosphatase 80 U/L (46-116) Troponin I Quantitative 0.018 ng/mL (0.000-0.055) FS-Rgp-V-Type Natriuretic Peptide 988 pg/mL (0-449) H Total Protein 7.8 g/dL (6.4-8.2) Albumin 3.0 g/dL (3.4-5.0) L Lipase 221 U/L (73-393) Lactic Acid Level 2.1 mmol/L (0.4-2.0) H Laboratory Tests 08/08/16 11:54 Laboratory Tests 08/08/16 11:54 EKG EKG EKG shows sinus rhythm with a prolonged [place] interval regular rate. [place] is leftward. ST segments are congruent. Reviewed by myself. [] Radiology/Procedures Radiology/Procedures [] Course & Med Decision Making Course & Med Decision Making Pertinent Labs and Imaging studies reviewed. (See chart for details) 85-year-old male presenting to the emergency department today after having a seizure-like activity today around 11:00 AM. On our nursing examination the patient was noticed to have a slight facial droop. Therefore a code stroke was called at that time. The patient went for head CT. Blood work is obtained along with EKG. I discussed the case with Dr. Sanchez. He was able to evaluate the patient down in the emergency department. NIH stroke scale of 1. Last known normal at 11:00 AM. TPA was not administered due to seizure prior to facial droop. Furthermore, there was suspicion that this facial droop was not new as the picture on the patient's previous admission record shows mild facial asymmetry. Furthermore given the concern for bleeding of TPA with a very low NIH stroke scale. Dr. Sanchez who evaluated the patient emergency department agrees with me on not administering tpa. The patient was then admitted to our hospital for further evaluation workup and care. Dragon Disclaimer Dragon Disclaimer This electronic medical record was generated, in whole or in part, using a voice recognition dictation system. Departure Departure Impression: Primary Impression: Seizure Additional Impression: Facial asymmetry Disposition: ADMITTED INPATIENT Admitting Physician: Chiara Angel Condition: STABLE Referrals: CHICO SHIPLEY (PCP) Problem Qualifiers EDGAR YAN MD August 08, 2016 12:20
[2016-08-08 12:22] LABS: BASO # 0.1 x10^3/uL (0.0-0.2); BASO % 1 % (0-3); EOS % 1 % (0-3); HEMATOCRIT 40.4 % (39.0-53.0); HEMOGLOBIN 13.2 g/dL (13.0-17.5); LYMPH % 14 % (24-48); MEAN CORPUSCULAR HEMOGLOBIN 32 pg (25-35); MEAN CORPUSCULAR HGB CONC 33 g/dL (31-37); MEAN CORPUSCULAR VOLUME 99 fL (79-100); MONO % 13 % (0-9); NEUT % 72 % (31-73); PLATELET COUNT 215 x10^3/uL (140-400); RED BLOOD COUNT 4.08 x10^6/uL (4.30-5.70); RED CELL DISTRIBUTION WIDTH 14.7 % (11.5-14.5); WHITE BLOOD COUNT 7.5 x10^3/uL (4.0-11.0)
--- NOTE | 2016-08-08 12:30 | RAD ---
CT of the head without contrast, 08/08/2016: History: Seizure, Prostate cancer Comparison is made to a study from 04/07/2015. There is moderate cerebral atrophy. There are moderate unchanged patchy deep white matter lucencies bilaterally compatible with chronic ischemic change. There is mild compensatory enlargement of the ventricles. There is no shift of the midline structures. There is no evidence of acute intracranial hemorrhage or mass effect. Bilateral basal ganglia calcifications are present. Paranasal sinusitis evident on the previous study has improved. There is only minimal residual fluid or mucosal thickening posteriorly in the left maxillary sinus. There is mild mucosal thickening in both ethmoid sinuses. IMPRESSION: 1. Moderate chronic ischemic change in the deep white matter bilaterally. 2. Moderate cerebral atrophy. 3. No acute intracranial abnormality is detected. PQRS Compliance Statement: One or more of the following individualized dose reduction techniques were utilized for this examination: 1. Automated exposure control 2. Adjustment of the mA and/or kV according to patient size 3. Use of iterative reconstruction technique
[2016-08-08 12:35] LABS: CALCIUM 8.9 mg/dL (8.5-10.1); CREATININE 1.5 mg/dL (0.7-1.3); GFR 44.3; POTASSIUM 4.4 mmol/L (3.5-5.1)
[2016-08-08 12:41] LABS: DIRECT BILIRUBIN 0.1 mg/dL (0.0-0.2); TOTAL BILIRUBIN 0.4 mg/dL (0.2-1.0); TOTAL PROTEIN 7.8 g/dL (6.4-8.2)
--- NOTE | 2016-08-08 12:43 | RAD ---
Portable chest, 08/08/2016: History: Seizure, confusion Comparison is made to a study from 04/07/2015. There has been a previous median sternotomy. The heart is at the upper limits of normal in size. There is calcific plaquing of the aorta. The pulmonary vascularity is normal. There is an opacity laterally in the left lung base obscuring the hemidiaphragm. Similar findings were present on the previous study. No right lung infiltrate is seen. IMPRESSION: 1. Borderline cardiomegaly and aortic atherosclerosis. 2. Left basilar opacity raising the possibility of recurrent pneumonia. A neoplastic etiology cannot be excluded. A prominent epicardial fat pad is less likely. CT scanning may be useful for further evaluation, if clinically indicated.
[2016-08-08] MEDS ORDERED: ONDANSETRON PF 4 MG/2 ML VIAL. IV PRN (13:00)
[2016-08-08] MEDS ORDERED: MORPHINE SULFATE 2 MG/ML DISP.SYRIN. IV PRN (13:00)
--- NOTE | 2016-08-08 13:36 | PDOC2 ---
NEUROLOGY CONSULT Date of Admission Date of Admission DATE: 08/08/16 TIME: 13:24 Reason for Consult Reason for Consult: seizure Referring Physician Referring Physician: Dr. Carreno Source Source: Caregiver, Chart review, Patient History of Present Illness History of Present Illness The patient is an 85-year-old right-handed male who had a seizure at the intermediate this morning at 11 AM. There was tonic-clonic activity without tongue biting or incontinence. There was postictal confusion. There is no prior history of stroke, seizure, or head injury according to the , but he does have a history of transient ischemic attack. He has been the intermediate for several years. He does have some dementia. Past Medical History Cardiovascular: HTN, Hyperlipidemia, Aortic stenosis CENTRAL NERVOUS SYSTEM: Dementia, Periperal neuropathy, TIA GI: GERD Heme/Onc: Anemia NOS Musculoskeletal: Osteoarthritis Renal/: UTI, Prostate Ca., Urinary Incontinence Endocrine: Hypothyroidism Dermatology: Cellulitis (admitted here last month) Past Surgical History Past Surgical History: Other (tumor left face, skin cancer removal) Family History Family History: No pertinent hx Social History Social History , lives in intermediate, no alcohol, tobacco Current Medications Current Medications Current Medications Ondansetron HCl (Zofran) 4 mg PRN Q8HRS PRN IV NAUSEA/VOMITING; Start 08/08/16 at 13:00; Stop 08/09/16 at 12:59 Morphine Sulfate 2 mg PRN Q2HR PRN IV PAIN; Start 08/08/16 at 13:00; Stop at 12:59 Active Scripts Active Reported Multi Vitamin Daily (Multivitamin) 1 Each Tablet 1 Each PO Omeprazole 20 Mg Tablet.dr 1 Tab PO DAILY Namenda (Memantine Hcl) 10 Mg Tablet 1 Tab PO QHS Milk Of Magnesia (Magnesium Hydroxide) 400 Mg/5 Ml Oral.susp 400 Mg PO Fleet Enema (Na Phos,M-B/Na Phos,Di-Ba) 133 Ml Enema 1 Each RC ONCE Claritin (Loratadine) 10 Mg Tablet 1 Tab PO DAILY Augmentin 875-125 Tablet (Amoxicillin/Potassium Clav) 1 Each Tablet 1 Tab PO BID Zofran (Ondansetron Hcl) 8 Mg Tablet 1 Tab PO PRN Q8HRS PRN Metoprolol Succinate ( Xl ) (Metoprolol Succinate) 25 Mg Tab.er.24h 12.5 Mg PO DAILY Levothyroxine Sodium 100 Mcg Tablet 1 Tab PO DAILY Citalopram Hbr (Citalopram Hydrobromide) 10 Mg Tablet 1 Tab PO DAILY Robitussin Cough-Chest Dm Liq (Guaifenesin/Dextromethorphan) 118 Ml Liquid 5 Ml PO TID Hydrocodone-Apap 5-325 (Hydrocodone Bit/Acetaminophen) 1 Each Tablet 1 Tab PO TID Vitamin D3 (Cholecalciferol (Vitamin D3)) 1,000 Unit Tablet 1 Tab PO BID Colace (Docusate Sodium) 100 Mg Capsule 1 Cap PO DAILY Aricept (Donepezil Hcl) 10 Mg Tablet 1 Tab PO QHS Amlodipine Besylate 2.5 Mg Tablet 2.5 Mg PO DAILY Lisinopril 2.5 Mg Tablet 1 Tab PO DAILY Gabapentin 300 Mg Capsule 1 Cap PO DAILY Allergies Allergies: Coded Allergies: Hfspday-Cxf-Kal Reductase Inhibitor (Verified Allergy, Intermediate, ) cholestyramine (Verified Allergy, Intermediate, 10/31/15) ezetimibe (Verified Allergy, Intermediate, 10/31/15) niacin (Verified Allergy, Intermediate, 10/31/15) rosuvastatin (Verified Allergy, Intermediate, 04/06/15) simvastatin (Verified Allergy, Intermediate, 04/06/15) ROS Review of System Patient denies fevers, chills, weight loss, dyspnea, angina, abdominal pain, change in bowels, or dysuria. 14 point review of systems is negative. Physical Exam Physical Examination PHYSICAL EXAMINATION: Vital signs: see above. General appearance is normal and in no acute distress. HEENT: Normocephalic and nontraumatic. Eyes, nose, ears, and throat are unremarkable. Neck is supple. No lymphadenopathy. No bruits are heard over the carotid artery. No crepitus. NEUROLOGICAL EXAMINATION: Mental Status Examination: Sleepy, alerts easily. Oriented only to person. Answers questions and follows commends. Pupils are equal round and reactive to light and accommodation. Extraocular movements are intact. Visual field exam shows no defect on the direct confrontation. There is a right central facial weakness which actually appears present on the patient's hospital photograph but the thinks it's new. Uvula in the midline and the soft palate elevated symmetrically. No deviation of the tongue to any direction. Gross hearing is normal. Shoulder shrug normal. Muscle tone is normal. Muscle strength is 3/5. Deep tendon reflexes are 1+ all around. Plantar reflex is with flexion response bilaterally. He does not cooperate with coordination and sensory testing. Gait not tested. Vitals VITALS Vital Signs Date Time Temp Pulse Resp B/P (MAP) Pulse Ox O2 Delivery O2 Flow Rate FiO2 08/08/16 11:42 98.2 68 18 110/60 (77) 96 Room Air 98.2 Labs Labs Laboratory Tests Test 08/08/16 11:54 08/08/16 12:15 White Blood Count 7.5 x10^3/uL (4.0-11.0) Red Blood Count 4.08 x10^6/uL (4.30-5.70) Hemoglobin 13.2 g/dL (13.0-17.5) Hematocrit 40.4 % (39.0-53.0) Mean Corpuscular Volume 99 fL (79-100) Mean Corpuscular Hemoglobin 32 pg (25-35) Mean Corpuscular Hemoglobin Concent 33 g/dL (31-37) Red Cell Distribution Width 14.7 % (11.5-14.5) Platelet Count 215 x10^3/uL (140-400) Neutrophils (%) (Auto) 72 % (31-73) Lymphocytes (%) (Auto) 14 % (24-48) Monocytes (%) (Auto) 13 % (0-9) Eosinophils (%) (Auto) 1 % (0-3) Basophils (%) (Auto) 1 % (0-3) Neutrophils # (Auto) 5.4 x10^3uL (1.8-7.7) Lymphocytes # (Auto) 1.0 x10^3/uL (1.0-4.8) Monocytes # (Auto) 0.9 x10^3/uL (0.0-1.1) Eosinophils # (Auto) 0.1 x10^3/uL (0.0-0.7) Basophils # (Auto) 0.1 x10^3/uL (0.0-0.2) Sodium Level 139 mmol/L (136-145) Potassium Level 4.4 mmol/L (3.5-5.1) Chloride Level 104 mmol/L (98-107) Carbon Dioxide Level 25 mmol/L (21-32) Anion Gap 10 (6-14) Blood Urea Nitrogen 29 mg/dL (8-26) Creatinine 1.5 mg/dL (0.7-1.3) Estimated GFR (Cockcroft-Gault) 44.3 Glucose Level 117 mg/dL (70-99) Calcium Level 8.9 mg/dL (8.5-10.1) Total Bilirubin 0.4 mg/dL (0.2-1.0) Direct Bilirubin 0.1 mg/dL (0.0-0.2) Aspartate Amino Transf (AST/SGOT) 28 U/L (15-37) Alanine Aminotransferase (ALT/SGPT) 23 U/L (16-63) Alkaline Phosphatase 80 U/L (46-116) Troponin I Quantitative 0.018 ng/mL (0.000-0.055) RZ-Yxt-Z-Type Natriuretic Peptide 988 pg/mL (0-449) Total Protein 7.8 g/dL (6.4-8.2) Albumin 3.0 g/dL (3.4-5.0) Lipase 221 U/L (73-393) Lactic Acid Level 2.1 mmol/L (0.4-2.0) Laboratory Tests Test 08/08/16 11:54 08/08/16 12:15 White Blood Count 7.5 x10^3/uL (4.0-11.0) Red Blood Count 4.08 x10^6/uL (4.30-5.70) Hemoglobin 13.2 g/dL (13.0-17.5) Hematocrit 40.4 % (39.0-53.0) Mean Corpuscular Volume 99 fL (79-100) Mean Corpuscular Hemoglobin 32 pg (25-35) Mean Corpuscular Hemoglobin Concent 33 g/dL (31-37) Red Cell Distribution Width 14.7 % (11.5-14.5) Platelet Count 215 x10^3/uL (140-400) Neutrophils (%) (Auto) 72 % (31-73) Lymphocytes (%) (Auto) 14 % (24-48) Monocytes (%) (Auto) 13 % (0-9) Eosinophils (%) (Auto) 1 % (0-3) Basophils (%) (Auto) 1 % (0-3) Neutrophils # (Auto) 5.4 x10^3uL (1.8-7.7) Lymphocytes # (Auto) 1.0 x10^3/uL (1.0-4.8) Monocytes # (Auto) 0.9 x10^3/uL (0.0-1.1) Eosinophils # (Auto) 0.1 x10^3/uL (0.0-0.7) Basophils # (Auto) 0.1 x10^3/uL (0.0-0.2) Sodium Level 139 mmol/L (136-145) Potassium Level 4.4 mmol/L (3.5-5.1) Chloride Level 104 mmol/L (98-107) Carbon Dioxide Level 25 mmol/L (21-32) Anion Gap 10 (6-14) Blood Urea Nitrogen 29 mg/dL (8-26) Creatinine 1.5 mg/dL (0.7-1.3) Estimated GFR (Cockcroft-Gault) 44.3 Glucose Level 117 mg/dL (70-99) Calcium Level 8.9 mg/dL (8.5-10.1) Total Bilirubin 0.4 mg/dL (0.2-1.0) Direct Bilirubin 0.1 mg/dL (0.0-0.2) Aspartate Amino Transf (AST/SGOT) 28 U/L (15-37) Alanine Aminotransferase (ALT/SGPT) 23 U/L (16-63) Alkaline Phosphatase 80 U/L (46-116) Troponin I Quantitative 0.018 ng/mL (0.000-0.055) JT-Jcn-D-Type Natriuretic Peptide 988 pg/mL (0-449) Total Protein 7.8 g/dL (6.4-8.2) Albumin 3.0 g/dL (3.4-5.0) Lipase 221 U/L (73-393) Lactic Acid Level 2.1 mmol/L (0.4-2.0) Images Images CT head: Comparison is made to a study from 04/07/2015. There is moderate cerebral atrophy. There are moderate unchanged patchy deep white matter lucencies bilaterally compatible with chronic ischemic change. There is mild compensatory enlargement of the ventricles. There is no shift of the midline structures. There is no evidence of acute intracranial hemorrhage or mass effect. Bilateral basal ganglia calcifications are present. Paranasal sinusitis evident on the previous study has improved. There is only minimal residual fluid or mucosal thickening posteriorly in the left maxillary sinus. There is mild mucosal thickening in both ethmoid sinuses. IMPRESSION: 1. Moderate chronic ischemic change in the deep white matter bilaterally. 2. Moderate cerebral atrophy. 3. No acute intracranial abnormality is detected. Assessment/Plan Assessment/Plan Impression: New onset seizure History dementia Right facial weakness, otherwise no evidence of acute stroke. This may be old according to textures in his file although the thinks it's new Diagnosis of peripheral neuropathy, unable to assess Recommendations: MRI brain EEG Hold on anticonvulsants I discussed risks, benefits, alternatives with the patient's regarding the use of tissue plasminogen activator. Although he is in the time window to administer this, I have a low suspicion that he had a stroke and I believe the risks outweigh the benefits, thus. I'm concerned about his age as a risk factor for complications. Thank you for letting me help with the patient's care. MAHOGANY RBAVO MD August 08, 2016 13:36
[2016-08-08 14:01] LABS: BILIRUBIN,URINE NEGATIVE (NEG); GLUCOSE,URINE NEGATIVE (NEG); NITRITE,URINE NEGATIVE (NEG); PH,URINE 5.5; PROTEIN,URINE 30 mg/dL (NEG-TRACE)
[2016-08-08 14:07] LABS: BACTERIA,URINE 0 /HPF (0-FEW); BARBITURATES NEG (NEG); BENZODIAZEPINES NEG (NEG); CANNABINOIDS NEG (NEG); COCAINE NEG (NEG); METHADONE NEG (NEG); OPIATES NEG (NEG); PHENCYCLIDINE NEG (NEG); RBC,URINE RARE /HPF (0-2); SQUAMOUS EPITHELIAL CELL,UR OCC /LPF; WBC,URINE 0 /HPF (0-4)
[2016-08-08 15:15] VITALS: BP 146/80
[2016-08-08 17:05] VITALS: BP 146/80
[2016-08-08] MEDS ORDERED: MAGNESIUM HYDROXIDE 2,400 MG/30 ML ORAL.SUSP. PO PRN (17:45)
--- NOTE | 2016-08-08 17:45 | EKG ---
[facility] [address] [place] [address] Test Date: 2016-08-08 Test Time: 11:46:21 Pat Name: ROSALBA WEBB Department: Room: [facility] Gender: M Template Maker: : 1930 Requested By: EDGAR YAN Order Number: [id number] Reading MD: Dunia Hair Measurements Intervals [place] Rate: 71 P: 92 IN: 278 QRS: -10 QRSD: 102 T: 73 QT: 450 QTc: 495 Interpretive Statements SINUS RHYTHM PROLONGED IN INTERVAL LEFTWARD AXIS NON-SPECIFIC ST/T CHANGES Electronically Signed On 08-10-2016 17:51:09 CDT by Dunia Hair
[2016-08-08] MEDS ORDERED: ONDANSETRON ODT 4 MG TAB.RAPDIS. PO PRN (18:00)
[2016-08-08 19:30] VITALS: BP 109/52
[2016-08-08] MEDS: HYDROcodone/APAP 5/325MG 1 TAB TABLET PO SCH (19:34)
[2016-08-08] MEDS: DONEPEZIL HCL 10 MG TABLET. PO SCH (19:34)
[2016-08-08] MEDS: MEMANTINE 10 MG TABLET. PO SCH (19:35)
[2016-08-08] MEDS: CHOLECALCIFEROL (VITAMIN D3) 1,000 UNIT TABLET PO SCH (19:35)
[2016-08-08 22:41] VITALS: BP 159/65
[2016-08-09 03:00] VITALS: BP 128/65
[2016-08-09 05:38] LABS: BASO % 1 % (0-3); EOS % 2 % (0-3); HEMATOCRIT 35.8 % (39.0-53.0); HEMOGLOBIN 11.8 g/dL (13.0-17.5); LYMPH # 0.9 x10^3/uL (1.0-4.8); LYMPH % 19 % (24-48); MEAN CORPUSCULAR HEMOGLOBIN 32 pg (25-35); MEAN CORPUSCULAR HGB CONC 33 g/dL (31-37); MEAN CORPUSCULAR VOLUME 97 fL (79-100); MONO % 14 % (0-9); NEUT % 65 % (31-73); PLATELET COUNT 177 x10^3/uL (140-400); RED BLOOD COUNT 3.67 x10^6/uL (4.30-5.70); RED CELL DISTRIBUTION WIDTH 14.7 % (11.5-14.5); WHITE BLOOD COUNT 5.1 x10^3/uL (4.0-11.0)
[2016-08-09 05:52] LABS: CALCIUM 8.7 mg/dL (8.5-10.1); CREATININE 1.4 mg/dL (0.7-1.3); GFR 47.9; POTASSIUM 3.9 mmol/L (3.5-5.1)
[2016-08-09 06:01] LABS: CHOLESTEROL/HDL RATIO 4.7
[2016-08-09 07:37] VITALS: BP 150/71
[2016-08-09] MEDS: amLODIPine BESYLATE 2.5 MG TABLET PO SCH (09:00)
[2016-08-09] MEDS: CETIRIZINE HCL 10 MG TABLET. PO SCH (09:00)
[2016-08-09] MEDS: LEVOTHYROXINE 100 MCG TABLET PO SCH (09:36)
[2016-08-09] MEDS: DOCUSATE SODIUM 100 MG CAPSULE. PO SCH (09:37)
[2016-08-09] MEDS: CITALOPRAM 10 MG TABLET. PO SCH (09:37)
[2016-08-09] MEDS: PANTOPRAZOLE 40 MG TABLET.DR. PO SCH (09:37)
[2016-08-09] MEDS: GABAPENTIN 300 MG CAPSULE. PO SCH (09:37)
[2016-08-09] MEDS: CHOLECALCIFEROL (VITAMIN D3) 1,000 UNIT TABLET PO SCH ×2 (09:37→20:51)
[2016-08-09] MEDS: LISINOPRIL 2.5 MG TABLET PO SCH (09:38)
[2016-08-09] MEDS: HYDROcodone/APAP 5/325MG 1 TAB TABLET PO SCH ×2 (09:52→21:00)
[2016-08-09] MEDS: METOPROLOL SUCC 24HR ER 25 MG TAB.ER.24H. PO SCH (10:08)
--- NOTE | 2016-08-09 10:21 | RAD ---
Indication new onset seizures. MRI examination of the head was performed. Note is made of a previous exam 12/28/2013. Imaging sequences which were obtained including sagittal T1, axial T1, T2, FLAIR and gradient echo sequences. Axial ADC and DWI maps were also obtained. Coronal FLAIR and T2 sequences were also obtained. No contrast was administered. Some of the imaging sequences are compromised by motion. On the ADC and DWI maps no recent or acute infarct is seen. On the gradient echo sequence no parenchymal hemorrhage is seen. There is generalized atrophy. Best demonstrated on the FLAIR sequence are areas of increased signal intensity in the deep white matter compatible with microvascular disease. A mass or midline shift is not seen. Acute finding is not apparent. IMPRESSION: Chronic changes. No acute finding seen
--- NOTE | 2016-08-09 11:20 | PDOC ---
Provider Note Provider Note Pt seen.H&P dictated. #[id number] STANLEY OCONNELL MD August 09, 2016 11:20
[2016-08-09 11:28] VITALS: BP 129/55
--- NOTE | 2016-08-09 11:54 | PDOC ---
PROGRESS NOTES Assessment Problems Medical Problems: (1) Facial asymmetry Status: Acute (2) Seizure Status: Acute New onset seizure History dementia Right facial weakness, probably old No sign of stroke Diagnosis of peripheral neuropathy, no pinprick loss, just hyporeflexia Plan EEG not done yet, if patient leaves before 08/11, would just cancel it. No anticonvulsant for this first seizure Discussed with and Dr. Turpin Objective Vital Signs Date Time Temp Pulse Resp B/P (MAP) Pulse Ox O2 Delivery O2 Flow Rate FiO2 08/09/16 11:28 97.9 61 20 129/55 (79) 94 Room Air 97.9 Intake and Output 08/09/16 07:00 Intake Total 0 ml Balance 0 ml Intake Oral 0 ml PHYSICAL EXAM Alert. Oriented only to person. PERRL. EOMI. CN: Right central VII, otherwise no focal findings. Muscle tone: normal. Muscle strength: 3/5 DTR: 1+ Plantar reflex: flexor Gait: not examined in bed. Sensory exam: no abnormal findings. No cerebellar signs elicited. Review of Relevant I have reviewed the following items michael (where applicable) has been applied. Labs Laboratory Tests Test 08/08/16 11:54 08/08/16 12:15 08/08/16 13:50 08/09/16 05:00 White Blood Count 7.5 x10^3/uL (4.0-11.0) 5.1 x10^3/uL (4.0-11.0) Red Blood Count 4.08 x10^6/uL (4.30-5.70) 3.67 x10^6/uL (4.30-5.70) Hemoglobin 13.2 g/dL (13.0-17.5) 11.8 g/dL (13.0-17.5) Hematocrit 40.4 % (39.0-53.0) 35.8 % (39.0-53.0) Mean Corpuscular Volume 99 fL (79-100) 97 fL (79-100) Mean Corpuscular Hemoglobin 32 pg (25-35) 32 pg (25-35) Mean Corpuscular Hemoglobin Concent 33 g/dL (31-37) 33 g/dL (31-37) Red Cell Distribution Width 14.7 % (11.5-14.5) 14.7 % (11.5-14.5) Platelet Count 215 x10^3/uL (140-400) 177 x10^3/uL (140-400) Neutrophils (%) (Auto) 72 % (31-73) 65 % (31-73) Lymphocytes (%) (Auto) 14 % (24-48) 19 % (24-48) Monocytes (%) (Auto) 13 % (0-9) 14 % (0-9) Eosinophils (%) (Auto) 1 % (0-3) 2 % (0-3) Basophils (%) (Auto) 1 % (0-3) 1 % (0-3) Neutrophils # (Auto) 5.4 x10^3uL (1.8-7.7) 3.3 x10^3uL (1.8-7.7) Lymphocytes # (Auto) 1.0 x10^3/uL (1.0-4.8) 0.9 x10^3/uL (1.0-4.8) Monocytes # (Auto) 0.9 x10^3/uL (0.0-1.1) 0.7 x10^3/uL (0.0-1.1) Eosinophils # (Auto) 0.1 x10^3/uL (0.0-0.7) 0.1 x10^3/uL (0.0-0.7) Basophils # (Auto) 0.1 x10^3/uL (0.0-0.2) 0.0 x10^3/uL (0.0-0.2) Sodium Level 139 mmol/L (136-145) 140 mmol/L (136-145) Potassium Level 4.4 mmol/L (3.5-5.1) 3.9 mmol/L (3.5-5.1) Chloride Level 104 mmol/L (98-107) 105 mmol/L (98-107) Carbon Dioxide Level 25 mmol/L (21-32) 28 mmol/L (21-32) Anion Gap 10 (6-14) 7 (6-14) Blood Urea Nitrogen 29 mg/dL (8-26) 28 mg/dL (8-26) Creatinine 1.5 mg/dL (0.7-1.3) 1.4 mg/dL (0.7-1.3) Estimated GFR (Cockcroft-Gault) 44.3 47.9 Glucose Level 117 mg/dL (70-99) 110 mg/dL (70-99) Calcium Level 8.9 mg/dL (8.5-10.1) 8.7 mg/dL (8.5-10.1) Total Bilirubin 0.4 mg/dL (0.2-1.0) Direct Bilirubin 0.1 mg/dL (0.0-0.2) Aspartate Amino Transf (AST/SGOT) 28 U/L (15-37) Alanine Aminotransferase (ALT/SGPT) 23 U/L (16-63) Alkaline Phosphatase 80 U/L (46-116) Troponin I Quantitative 0.018 ng/mL (0.000-0.055) TH-Csm-V-Type Natriuretic Peptide 988 pg/mL (0-449) Total Protein 7.8 g/dL (6.4-8.2) Albumin 3.0 g/dL (3.4-5.0) Lipase 221 U/L (73-393) Lactic Acid Level 2.1 mmol/L (0.4-2.0) 0.9 mmol/L (0.4-2.0) Urine Collection Type U cath Urine Color Yellow Urine Clarity Clear Urine pH 5.5 Urine Specific [place] 1.015 Urine Protein 30 mg/dL (NEG-TRACE) Urine Glucose (UA) Negative mg/dL (NEG) Urine Ketones (Stick) Negative mg/dL (NEG) Urine Blood Negative (NEG) Urine Nitrite Negative (NEG) Urine Bilirubin Negative (NEG) Urine Urobilinogen Dipstick 1.0 mg/dL (0.2 mg/dL) Urine Leukocyte Esterase Negative (NEG) Urine RBC Rare /HPF (0-2) Urine WBC 0 /HPF (0-4) Urine Squamous Epithelial Cells Occ /LPF Urine Transitional Epithelial Cells Occ /LPF Urine Bacteria 0 /HPF (0-FEW) Urine Hyaline Casts Occasional /HPF Urine Mucus Slight /LPF Urine Opiates Screen Neg (NEG) Urine Methadone Screen Neg (NEG) Urine Barbiturates Neg (NEG) Urine Phencyclidine Screen Neg (NEG) Urine Amphetamine/Methamphetamine Neg (NEG) Urine Benzodiazepines Screen Neg (NEG) Urine Cocaine Screen Neg (NEG) Urine Cannabinoids Screen Neg (NEG) Urine Ethyl Alcohol Neg (NEG) Triglycerides Level 100 mg/dL (0-150) Cholesterol Level 235 mg/dL (0-200) LDL Cholesterol, Calculated 165 mg/dL (0-100) VLDL Cholesterol, Calculated 20 mg/dL (0-40) Non-HDL Cholesterol Calculated 185 mg/dL (0-129) HDL Cholesterol 50 mg/dL (40-60) Cholesterol/HDL Ratio 4.7 Thyroid Stimulating Hormone (TSH) 1.118 uIU/mL (0.358-3.74) Laboratory Tests Test 08/08/16 11:54 08/08/16 12:15 08/08/16 13:50 08/09/16 05:00 White Blood Count 7.5 x10^3/uL (4.0-11.0) 5.1 x10^3/uL (4.0-11.0) Red Blood Count 4.08 x10^6/uL (4.30-5.70) 3.67 x10^6/uL (4.30-5.70) Hemoglobin 13.2 g/dL (13.0-17.5) 11.8 g/dL (13.0-17.5) Hematocrit 40.4 % (39.0-53.0) 35.8 % (39.0-53.0) Mean Corpuscular Volume 99 fL (79-100) 97 fL (79-100) Mean Corpuscular Hemoglobin 32 pg (25-35) 32 pg (25-35) Mean Corpuscular Hemoglobin Concent 33 g/dL (31-37) 33 g/dL (31-37) Red Cell Distribution Width 14.7 % (11.5-14.5) 14.7 % (11.5-14.5) Platelet Count 215 x10^3/uL (140-400) 177 x10^3/uL (140-400) Neutrophils (%) (Auto) 72 % (31-73) 65 % (31-73) Lymphocytes (%) (Auto) 14 % (24-48) 19 % (24-48) Monocytes (%) (Auto) 13 % (0-9) 14 % (0-9) Eosinophils (%) (Auto) 1 % (0-3) 2 % (0-3) Basophils (%) (Auto) 1 % (0-3) 1 % (0-3) Neutrophils # (Auto) 5.4 x10^3uL (1.8-7.7) 3.3 x10^3uL (1.8-7.7) Lymphocytes # (Auto) 1.0 x10^3/uL (1.0-4.8) 0.9 x10^3/uL (1.0-4.8) Monocytes # (Auto) 0.9 x10^3/uL (0.0-1.1) 0.7 x10^3/uL (0.0-1.1) Eosinophils # (Auto) 0.1 x10^3/uL (0.0-0.7) 0.1 x10^3/uL (0.0-0.7) Basophils # (Auto) 0.1 x10^3/uL (0.0-0.2) 0.0 x10^3/uL (0.0-0.2) Sodium Level 139 mmol/L (136-145) 140 mmol/L (136-145) Potassium Level 4.4 mmol/L (3.5-5.1) 3.9 mmol/L (3.5-5.1) Chloride Level 104 mmol/L (98-107) 105 mmol/L (98-107) Carbon Dioxide Level 25 mmol/L (21-32) 28 mmol/L (21-32) Anion Gap 10 (6-14) 7 (6-14) Blood Urea Nitrogen 29 mg/dL (8-26) 28 mg/dL (8-26) Creatinine 1.5 mg/dL (0.7-1.3) 1.4 mg/dL (0.7-1.3) Estimated GFR (Cockcroft-Gault) 44.3 47.9 Glucose Level 117 mg/dL (70-99) 110 mg/dL (70-99) Calcium Level 8.9 mg/dL (8.5-10.1) 8.7 mg/dL (8.5-10.1) Total Bilirubin 0.4 mg/dL (0.2-1.0) Direct Bilirubin 0.1 mg/dL (0.0-0.2) Aspartate Amino Transf (AST/SGOT) 28 U/L (15-37) Alanine Aminotransferase (ALT/SGPT) 23 U/L (16-63) Alkaline Phosphatase 80 U/L (46-116) Troponin I Quantitative 0.018 ng/mL (0.000-0.055) YU-Krt-I-Type Natriuretic Peptide 988 pg/mL (0-449) Total Protein 7.8 g/dL (6.4-8.2) Albumin 3.0 g/dL (3.4-5.0) Lipase 221 U/L (73-393) Lactic Acid Level 2.1 mmol/L (0.4-2.0) 0.9 mmol/L (0.4-2.0) Urine Collection Type U cath Urine Color Yellow Urine Clarity Clear Urine pH 5.5 Urine Specific [place] 1.015 Urine Protein 30 mg/dL (NEG-TRACE) Urine Glucose (UA) Negative mg/dL (NEG) Urine Ketones (Stick) Negative mg/dL (NEG) Urine Blood Negative (NEG) Urine Nitrite Negative (NEG) Urine Bilirubin Negative (NEG) Urine Urobilinogen Dipstick 1.0 mg/dL (0.2 mg/dL) Urine Leukocyte Esterase Negative (NEG) Urine RBC Rare /HPF (0-2) Urine WBC 0 /HPF (0-4) Urine Squamous Epithelial Cells Occ /LPF Urine Transitional Epithelial Cells Occ /LPF Urine Bacteria 0 /HPF (0-FEW) Urine Hyaline Casts Occasional /HPF Urine Mucus Slight /LPF Urine Opiates Screen Neg (NEG) Urine Methadone Screen Neg (NEG) Urine Barbiturates Neg (NEG) Urine Phencyclidine Screen Neg (NEG) Urine Amphetamine/Methamphetamine Neg (NEG) Urine Benzodiazepines Screen Neg (NEG) Urine Cocaine Screen Neg (NEG) Urine Cannabinoids Screen Neg (NEG) Urine Ethyl Alcohol Neg (NEG) Triglycerides Level 100 mg/dL (0-150) Cholesterol Level 235 mg/dL (0-200) LDL Cholesterol, Calculated 165 mg/dL (0-100) VLDL Cholesterol, Calculated 20 mg/dL (0-40) Non-HDL Cholesterol Calculated 185 mg/dL (0-129) HDL Cholesterol 50 mg/dL (40-60) Cholesterol/HDL Ratio 4.7 Thyroid Stimulating Hormone (TSH) 1.118 uIU/mL (0.358-3.74) Medications Current Medications Ondansetron HCl (Zofran) 4 mg PRN Q8HRS PRN IV NAUSEA/VOMITING; Start 08/08/16 at 13:00; Stop 08/09/16 at 12:59 Morphine Sulfate 2 mg PRN Q2HR PRN IV PAIN; Start 08/08/16 at 13:00; Stop at 12:59 Amlodipine Besylate (Norvasc) 2.5 mg DAILY PO Last administered on 08/09/16 09: 00; Start 08/09/16 at 09:00 Vitamin D (Vitamin D3) 1,000 unit BID PO Last administered on 08/09/16 09:37; Start 08/08/16 at 21:00 Citalopram Hydrobromide (CeleXA) 10 mg DAILY PO Last administered on 08/09/16 09:37; Start 08/09/16 at 09:00 Docusate Sodium (Colace) 100 mg DAILY PO Last administered on 08/09/16 09:37; Start 08/09/16 at 09:00 Donepezil HCl (Aricept) 10 mg QHS PO ; Start 08/08/16 at 21:00 Acetaminophen/ Hydrocodone Bitart (Lortab 5/325) 1 tab TID PO Last administered on 08/09/16 09:52; Start 08/08/16 at 21:00 Levothyroxine Sodium (Synthroid) 100 mcg DAILY07 PO Last administered on 09:36; Start 08/09/16 at 07:00 Lisinopril (Prinivil) 2.5 mg DAILY PO Last administered on 08/09/16 09:38; Start 08/09/16 at 09:00 Magnesium Hydroxide (Milk Of Magnesia) 2,400 mg PRN BID PRN PO CONSTIPATION; Start 08/08/16 at 17:45 Memantine (Namenda) 10 mg QHS PO ; Start 08/08/16 at 21:00 Metoprolol Succinate (Toprol Xl) 12.5 mg DAILY PO Last administered on 10:08; Start 08/09/16 at 09:00 Gabapentin (Neurontin) 300 mg DAILY PO Last administered on 08/09/16 09:37; Start 08/09/16 at 09:00 Cetirizine HCl (Zyrtec) 10 mg DAILY PO Last administered on 08/09/16 09:00; Start 08/09/16 at 09:00 Pantoprazole Sodium (Protonix) 40 mg DAILYAC PO Last administered on 08/09/16t 09:37; Start 08/09/16 at 07:30 Ondansetron HCl (Zofran Odt) 8 mg PRN Q8HRS PRN PO NAUSEA; Start 08/08/16 at 18: 00 Enoxaparin Sodium (Lovenox 40mg Syringe) 40 mg Q24H SQ ; Start 08/09/16 at 12:00 Active Scripts Active Reported Multi Vitamin Daily (Multivitamin) 1 Each Tablet 1 Each PO Omeprazole 20 Mg Tablet.dr 1 Tab PO DAILY Namenda (Memantine Hcl) 10 Mg Tablet 1 Tab PO QHS Milk Of Magnesia (Magnesium Hydroxide) 400 Mg/5 Ml Oral.susp 400 Mg PO Fleet Enema (Na Phos,M-B/Na Phos,Di-Ba) 133 Ml Enema 1 Each RC ONCE Claritin (Loratadine) 10 Mg Tablet 1 Tab PO DAILY Zofran (Ondansetron Hcl) 8 Mg Tablet 1 Tab PO PRN Q8HRS PRN Metoprolol Succinate ( Xl ) (Metoprolol Succinate) 25 Mg Tab.er.24h 12.5 Mg PO DAILY Levothyroxine Sodium 100 Mcg Tablet 1 Tab PO DAILY Citalopram Hbr (Citalopram Hydrobromide) 10 Mg Tablet 1 Tab PO DAILY Robitussin Cough-Chest Dm Liq (Guaifenesin/Dextromethorphan) 118 Ml Liquid 5 Ml PO TID Hydrocodone-Apap 5-325 (Hydrocodone Bit/Acetaminophen) 1 Each Tablet 1 Tab PO TID Vitamin D3 (Cholecalciferol (Vitamin D3)) 1,000 Unit Tablet 1 Tab PO BID Colace (Docusate Sodium) 100 Mg Capsule 1 Cap PO DAILY Aricept (Donepezil Hcl) 10 Mg Tablet 1 Tab PO QHS Amlodipine Besylate 2.5 Mg Tablet 2.5 Mg PO DAILY Lisinopril 2.5 Mg Tablet 1 Tab PO DAILY Gabapentin 300 Mg Capsule 1 Cap PO DAILY Vitals/I & O Vital Sign - Last 24 Hours 08/08/16 08/08/16 08/08/16 08/08/16 12:48 13:18 13:48 14:18 Pulse 66 68 72 72 B/P (MAP) 143/65 (91) 169/77 (107) 158/88 (111) 147/67 (93) Pulse Ox 95 98 O2 Delivery Room Air Room Air Room Air Room Air 08/08/16 08/08/16 08/08/16 08/08/16 14:31 15:15 17:05 19:30 Temp 99.1 99.1 98.4 99.1 99.1 98.4 Pulse 68 69 69 81 Resp 24 20 20 20 B/P (MAP) 154/72 (99) 146/80 (102) 146/80 (102) 109/52 (71) Pulse Ox 93 93 95 O2 Delivery Room Air Room Air Room Air Room Air 08/08/16 08/08/16 08/09/16 08/09/16 20:00 22:41 03:00 07:37 Temp 97.6 97.7 98.1 97.6 97.7 98.1 Pulse 65 63 65 Resp 20 20 20 B/P (MAP) 159/65 (96) 128/65 (86) 150/71 (97) Pulse Ox 93 95 93 O2 Delivery Room Air Room Air Room Air Room Air 08/09/16 08/09/16 08/09/16 08/09/16 09:00 09:38 09:52 10:08 Pulse 65 65 65 Resp 16 B/P (MAP) 150/71 150/71 150/71 Pulse Ox 93 O2 Delivery Room Air 08/09/16 11:28 Temp 97.9 97.9 Pulse 61 Resp 20 B/P (MAP) 129/55 (79) Pulse Ox 94 O2 Delivery Room Air Intake and Output 08/08/16 08/08/16 08/09/16 15:00 23:00 07:00 Intake Total 0 ml 0 ml Balance 0 ml 0 ml Images MRI brain: On the ADC and DWI maps no recent or acute infarct is seen. On the gradient echo sequence no parenchymal hemorrhage is seen. There is generalized atrophy. Best demonstrated on the FLAIR sequence are areas of increased signal intensity in the deep white matter compatible with microvascular disease. A mass or midline shift is not seen. Acute finding is not apparent. IMPRESSION: Chronic changes. No acute finding seen MAHOGANY BRAVO MD August 09, 2016 11:54
[2016-08-09] MEDS: ENOXAPARIN 40 MG/0.4 ML SYRINGE. SQ SCH (12:00)
--- NOTE | 2016-08-09 12:15 | HP ---
ADMIT DATE: 08/08/2016 LOCATION: 2. REASON FOR ADMISSION TO THE HOSPITAL: Possible seizure. HISTORY OF PRESENT ILLNESS: The patient is an 85-year-old male patient who has been a resident at [facility] for more than a year, and he was in this hospital a month ago with folliculitis. He was found to have a seizure-like activity and was [facility] the prison to the hospital. CT head was negative. He was seen by Neurology. MRI was ordered. It was decided to hold off on the seizure medications. This is the first episode. The patient had some postictal confusion and as per the , the patient has been on wheelchair-level for more than a year, has been declining, has been in assistive facility, now to the prison. PAST MEDICAL HISTORY: Hypertension, hyperlipidemia, aortic stenosis, GERD, anemia, arthritis, prostate cancer, hypothyroidism, and cellulitis of the leg. PAST SURGICAL HISTORY: Skin cancer removed, had a heart surgery for aortic valve stenosis. FAMILY HISTORY: Unremarkable. SOCIAL HISTORY: Lives at prison. His is also at the prison. No history of smoking, alcohol, or drug abuse. MEDICATIONS: At the prison, amlodipine 2.5 daily, vitamin D 1000 units daily, citalopram 10 mg daily, Colace 100 mg daily, Aricept 10 mg daily, gabapentin 300 mg daily, hydrocodone one q. 6h., levothyroxine 100 mcg daily, lisinopril 2.5 mg daily, loratadine 10 mg daily, milk of magnesia daily, Namenda 10 mg daily, metoprolol 25 mg daily, omeprazole 20 mg daily, and Zofran for nausea. ALLERGIES: STATINS, CHOLESTYRAMINE, ZETIA, NIACIN, CRESTOR, AND SIMVASTATIN. REVIEW OF SYMPTOMS: The patient has dementia, pleasant, making a good conversation. Denies any chest pain or shortness of breath, does not remember what happened. Rest of the 14-system was reviewed and negative. PHYSICAL EXAMINATION: VITAL SIGNS: At the time of admission shows a temperature 98, pulse 68, respirations 18, blood pressure 110/60, and 96% on room air. HEENT: Head is atraumatic. Pupils are equal. Oral cavity, no dentures. His natural teeth is present. NECK: Supple. Thyroid not enlarged. CHEST: Scar of heart surgery. CARDIOVASCULAR: S1, S2. No murmurs. LUNGS: Clear to auscultation. ABDOMEN: Soft. Bowel sounds present, no mass palpable. The patient is incontinent. No Whitmore catheter. RECTAL: Deferred. EXTREMITIES: No calf tenderness, no edema. Pulses 1+. NEUROLOGIC: Moving all extremities. No focal deficits noted. LABORATORY DATA: Shows a white count of 7, hemoglobin 13, and platelets are 215. Electrolytes show sodium 139, potassium 4.4, chloride 104, bicarbonate 25, BUN 29, creatinine 1.5, glucose 117, and lactic acid was 2.1 and 0.9. Cholesterol was 165, HDL 50, LDL 195. TSH 1.1. CT head was negative. MRI of the brain was negative. Chest x-ray showed left basilar opacity. FINAL IMPRESSION: 1. ? New onset of seizure. 2. History of heart surgery, looks like ?aortic valve surgery or bypass surgery. 3. Dementia. 4. Generalized weakness. 5. Hypertension. 6. Hyperlipidemia. PLAN: At this time, admit to hospital, seen by Neurology. MRI of the brain was done and negative. We will do a CT chest because of the abnormal chest x-ray and see how the patient's condition improves.Neuro was consulted. STANLEY OCONNELL MD DR: DERREK/shani JOB#: [id number] / [id number] Dr. Baldo Johnson
[2016-08-09 15:36] VITALS: BP 167/72
--- NOTE | 2016-08-09 16:27 | RAD ---
Indication abnormal chest x-ray. Noncontrast imaging through the chest was performed. Note is made of the plain film examination yesterday referencing possible pathology in the left lower lobe. No prior CT imaging of the chest is available. Imaging through the upper abdomen is unremarkable. There is a moderate-sized hiatus hernia. There is moderately extensive coronary artery calcification. The thoracic aorta appears unremarkable. There are few mediastinal lymph nodes which are probably incidental. Definite pathologic hilar or mediastinal adenopathy is not seen. There is no acute parenchymal infiltrate in either lung. A dominant soft tissue mass is not seen. Specifically no definite pathology is seen in the left lower lobe. The findings on plain film were probably secondary to overlying soft tissues. IMPRESSION: No acute or significant finding in the chest PQRS Compliance Statement: One or more of the following individualized dose reduction techniques were utilized for this examination: 1. Automated exposure control 2. Adjustment of the mA and/or kV according to patient size 3. Use of iterative reconstruction technique
[2016-08-09 19:00] VITALS: BP 134/68
[2016-08-09] MEDS: MEMANTINE 10 MG TABLET. PO SCH (20:52)
[2016-08-09] MEDS: DONEPEZIL HCL 10 MG TABLET. PO SCH (20:52)
[2016-08-09 23:00] VITALS: BP 125/60
[2016-08-10] VITALS (7 sets, daily range): BP systolic 108–148; BP diastolic 61–72
[2016-08-10 05:28] LABS: BASO % 1 % (0-3); EOS % 3 % (0-3); HEMATOCRIT 36.3 % (39.0-53.0); HEMOGLOBIN 12.2 g/dL (13.0-17.5); LYMPH # 1.3 x10^3/uL (1.0-4.8); LYMPH % 28 % (24-48); MEAN CORPUSCULAR HEMOGLOBIN 33 pg (25-35); MEAN CORPUSCULAR HGB CONC 34 g/dL (31-37); MEAN CORPUSCULAR VOLUME 97 fL (79-100); MONO % 16 % (0-9); NEUT % 52 % (31-73); PLATELET COUNT 166 x10^3/uL (140-400); RED BLOOD COUNT 3.75 x10^6/uL (4.30-5.70); RED CELL DISTRIBUTION WIDTH 14.7 % (11.5-14.5); WHITE BLOOD COUNT 4.7 x10^3/uL (4.0-11.0)
[2016-08-10 05:41] LABS: CALCIUM 8.8 mg/dL (8.5-10.1); CREATININE 1.5 mg/dL (0.7-1.3); GFR 44.3; POTASSIUM 3.8 mmol/L (3.5-5.1)
[2016-08-10] MEDS: HYDROcodone/APAP 5/325MG 1 TAB TABLET PO SCH ×4 (09:00→20:24)
[2016-08-10] MEDS: CETIRIZINE HCL 10 MG TABLET. PO SCH (09:41)
[2016-08-10] MEDS: LEVOTHYROXINE 100 MCG TABLET PO SCH (09:41)
[2016-08-10] MEDS: LISINOPRIL 2.5 MG TABLET PO SCH (09:41)
[2016-08-10] MEDS: PANTOPRAZOLE 40 MG TABLET.DR. PO SCH (09:41)
[2016-08-10] MEDS: METOPROLOL SUCC 24HR ER 25 MG TAB.ER.24H. PO SCH (09:42)
[2016-08-10] MEDS: amLODIPine BESYLATE 2.5 MG TABLET PO SCH (09:42)
[2016-08-10] MEDS: GABAPENTIN 300 MG CAPSULE. PO SCH (09:42)
[2016-08-10] MEDS: CITALOPRAM 10 MG TABLET. PO SCH (09:42)
[2016-08-10] MEDS: DOCUSATE SODIUM 100 MG CAPSULE. PO SCH (09:42)
[2016-08-10] MEDS: CHOLECALCIFEROL (VITAMIN D3) 1,000 UNIT TABLET PO SCH ×2 (09:43→20:24)
--- NOTE | 2016-08-10 11:09 | PDOC ---
PROGRESS NOTES Subjective Subjective back to base line, family at bedside Objective Objective Vital Signs Date Time Temp Pulse Resp B/P (MAP) Pulse Ox O2 Delivery O2 Flow Rate FiO2 08/10/16 09:47 72 08/10/16 09:42 148/69 08/10/16 09:42 94 Room Air 08/10/16 07:52 97.5 20 97.5 Intake and Output 08/10/16 07:00 Intake Total 625 ml Balance 625 ml Intake Oral 625 ml # Voids 6 # Bowel Movements 2 Physical Exam Abdomen: Normal bowel sounds, Soft Heart: Regular rate, Normal S1 Extremities: No clubbing General: No acute distress HEENT: PERRLA Lungs: Clear to auscultation MUSCULOSKELETAL: No deformity Neck: Supple Neuro: Normal speech Psych/Mental Status: Mood NL COMMENT ch stasis dermatitis legs both Diagnosis Problem List Problems Medical Problems: (1) Facial asymmetry Status: Acute (2) Seizure Status: Acute Assessment Assessment Problems Medical Problems: (1) Facial asymmetry Status: Acute (2) Seizure Status: Acute FINAL IMPRESSION: 1. ? New onset of seizure ,neurology not impressed that it was a seizure, no need to start on meds,watch and see. 2. History of heart surgery, looks like? aortic valve surgery or bypass surgery. 3. Dementia. 4. Generalized weakness. 5. Hypertension. 6. Hyperlipidemia. 7.Stasis dermatitis both legs PLAN: MRI brain -no lesions. CT chest -no lung mass. labs ok. spoke with family members , and son d/c back to [place] tomorrow,[facility]. At this time, admit to hospital, seen by Neurology. MRI of the brain was done and negative. We will do a CT chest because of the abnormal chest x-ray and see how the patient's condition improves. Problems: Plan Plan of Care Problems Medical Problems: (1) Facial asymmetry Status: Acute (2) Seizure Status: Acute Comment Review of Relevant I have reviewed the following items michael (where applicable) has been applied. Labs Laboratory Tests Test 08/10/16 04:30 White Blood Count 4.7 x10^3/uL (4.0-11.0) Red Blood Count 3.75 x10^6/uL (4.30-5.70) Hemoglobin 12.2 g/dL (13.0-17.5) Hematocrit 36.3 % (39.0-53.0) Mean Corpuscular Volume 97 fL (79-100) Mean Corpuscular Hemoglobin 33 pg (25-35) Mean Corpuscular Hemoglobin Concent 34 g/dL (31-37) Red Cell Distribution Width 14.7 % (11.5-14.5) Platelet Count 166 x10^3/uL (140-400) Neutrophils (%) (Auto) 52 % (31-73) Lymphocytes (%) (Auto) 28 % (24-48) Monocytes (%) (Auto) 16 % (0-9) Eosinophils (%) (Auto) 3 % (0-3) Basophils (%) (Auto) 1 % (0-3) Neutrophils # (Auto) 2.5 x10^3uL (1.8-7.7) Lymphocytes # (Auto) 1.3 x10^3/uL (1.0-4.8) Monocytes # (Auto) 0.8 x10^3/uL (0.0-1.1) Eosinophils # (Auto) 0.2 x10^3/uL (0.0-0.7) Basophils # (Auto) 0.0 x10^3/uL (0.0-0.2) Sodium Level 139 mmol/L (136-145) Potassium Level 3.8 mmol/L (3.5-5.1) Chloride Level 105 mmol/L (98-107) Carbon Dioxide Level 26 mmol/L (21-32) Anion Gap 8 (6-14) Blood Urea Nitrogen 26 mg/dL (8-26) Creatinine 1.5 mg/dL (0.7-1.3) Estimated GFR (Cockcroft-Gault) 44.3 Glucose Level 106 mg/dL (70-99) Calcium Level 8.8 mg/dL (8.5-10.1) Medications Current Medications Enoxaparin Sodium (Lovenox 40mg Syringe) 40 mg Q24H SQ ; Start 08/09/16 at 12:00 Vitals/I & O Vital Sign - Last 24 Hours 08/09/16 08/09/16 08/09/16 08/09/16 11:28 15:36 19:00 20:00 Temp 97.9 97.9 98.4 97.9 97.9 98.4 Pulse 61 58 63 Resp 20 20 20 B/P (MAP) 129/55 (79) 167/72 (103) 134/68 (90) Pulse Ox 94 94 96 O2 Delivery Room Air Room Air Room Air Room Air 08/09/16 08/10/16 08/10/16 08/10/16 23:00 02:56 07:52 09:41 Temp 97.9 97.7 97.5 97.9 97.7 97.5 Pulse 67 61 58 58 Resp 20 20 20 B/P (MAP) 125/60 (81) 146/72 (96) 148/69 (95) 148/69 Pulse Ox 93 92 94 O2 Delivery Room Air Room Air Room Air 08/10/16 08/10/16 08/10/16 08/10/16 09:42 09:42 09:42 09:47 Pulse 58 58 72 B/P (MAP) 148/69 148/69 Pulse Ox 94 O2 Delivery Room Air Intake and Output 08/09/16 08/09/16 08/10/16 15:00 23:00 07:00 Intake Total 625 ml Balance 625 ml STANLEY OCONNELL MD August 10, 2016 11:09
[2016-08-10] MEDS: ENOXAPARIN 40 MG/0.4 ML SYRINGE. SQ SCH (13:27)
--- NOTE | 2016-08-10 15:05 | EEG ---
DATE OF SERVICE: 08/09/2016 EEG NUMBER: [id number] performed on 08/09/2016. OBJECTIVE: The patient is an 85-year-old male with new onset of seizure. DESCRIPTION: This is a digital study. Electrodes are placed according to the international 10-20 system. Bipolar and referential montages are available. Activation procedures typically include hyperventilation and intermittent photic stimulation. INTERPRETATION: The waking background consists of 6-7 Hz, 50-100 microvolt activity, symmetrically distributed over parietooccipital regions and reactive to eye opening. The patient was unable to cooperate with hyperventilation. Intermittent photic stimulation is noncontributory. Stage I sleep is achieved with normal electroencephalogram patterns. IMPRESSION: This electroencephalogram with the patient awake and asleep is abnormal because of a mild, diffuse disturbance of cerebral activity consistent with any of a variety of toxic or metabolic encephalopathies. There is no focal, paroxysmal, or epileptiform activity. Thank you for letting us help with the patient's care. MAHOGANY BRAVO MD DR: MEO/shani JOB#: [id number] / [id number]
--- NOTE | 2016-08-10 16:09 | PDOC ---
PROGRESS NOTES Assessment Problems Medical Problems: (1) Facial asymmetry Status: Acute (2) Seizure Status: Acute New onset seizure, negative workup History dementia Right facial weakness, old No sign of stroke Diagnosis of peripheral neuropathy, no pinprick loss, just hyporeflexia Plan No anticonvulsant for this first seizure Family phone not accepting incoming calls Okay for discharge back to [place] Continue memantine and donepezil Followup with neurology as needed Subjective no complaints Objective Vital Signs Date Time Temp Pulse Resp B/P (MAP) Pulse Ox O2 Delivery O2 Flow Rate FiO2 08/10/16 11:40 98.5 58 20 142/65 (90) 92 Room Air 98.5 Intake and Output 08/10/16 07:00 Intake Total 625 ml Balance 625 ml Intake Oral 625 ml # Voids 6 # Bowel Movements 2 PHYSICAL EXAM Alert. Oriented only to person. PERRL. EOMI. CN: Right central VII, otherwise no focal findings. Muscle tone: normal. Muscle strength: 3/5 DTR: 1+ Plantar reflex: flexor Gait: not examined in bed. Sensory exam: no abnormal findings. No cerebellar signs elicited. Review of Relevant I have reviewed the following items michael (where applicable) has been applied. Labs Laboratory Tests Test 08/08/16 17:25 08/09/16 05:00 08/10/16 04:30 Nasal Screen MRSA (PCR) Negative (Negative) White Blood Count 5.1 x10^3/uL (4.0-11.0) 4.7 x10^3/uL (4.0-11.0) Red Blood Count 3.67 x10^6/uL (4.30-5.70) 3.75 x10^6/uL (4.30-5.70) Hemoglobin 11.8 g/dL (13.0-17.5) 12.2 g/dL (13.0-17.5) Hematocrit 35.8 % (39.0-53.0) 36.3 % (39.0-53.0) Mean Corpuscular Volume 97 fL (79-100) 97 fL (79-100) Mean Corpuscular Hemoglobin 32 pg (25-35) 33 pg (25-35) Mean Corpuscular Hemoglobin Concent 33 g/dL (31-37) 34 g/dL (31-37) Red Cell Distribution Width 14.7 % (11.5-14.5) 14.7 % (11.5-14.5) Platelet Count 177 x10^3/uL (140-400) 166 x10^3/uL (140-400) Neutrophils (%) (Auto) 65 % (31-73) 52 % (31-73) Lymphocytes (%) (Auto) 19 % (24-48) 28 % (24-48) Monocytes (%) (Auto) 14 % (0-9) 16 % (0-9) Eosinophils (%) (Auto) 2 % (0-3) 3 % (0-3) Basophils (%) (Auto) 1 % (0-3) 1 % (0-3) Neutrophils # (Auto) 3.3 x10^3uL (1.8-7.7) 2.5 x10^3uL (1.8-7.7) Lymphocytes # (Auto) 0.9 x10^3/uL (1.0-4.8) 1.3 x10^3/uL (1.0-4.8) Monocytes # (Auto) 0.7 x10^3/uL (0.0-1.1) 0.8 x10^3/uL (0.0-1.1) Eosinophils # (Auto) 0.1 x10^3/uL (0.0-0.7) 0.2 x10^3/uL (0.0-0.7) Basophils # (Auto) 0.0 x10^3/uL (0.0-0.2) 0.0 x10^3/uL (0.0-0.2) Sodium Level 140 mmol/L (136-145) 139 mmol/L (136-145) Potassium Level 3.9 mmol/L (3.5-5.1) 3.8 mmol/L (3.5-5.1) Chloride Level 105 mmol/L (98-107) 105 mmol/L (98-107) Carbon Dioxide Level 28 mmol/L (21-32) 26 mmol/L (21-32) Anion Gap 7 (6-14) 8 (6-14) Blood Urea Nitrogen 28 mg/dL (8-26) 26 mg/dL (8-26) Creatinine 1.4 mg/dL (0.7-1.3) 1.5 mg/dL (0.7-1.3) Estimated GFR (Cockcroft-Gault) 47.9 44.3 Glucose Level 110 mg/dL (70-99) 106 mg/dL (70-99) Lactic Acid Level 0.9 mmol/L (0.4-2.0) Calcium Level 8.7 mg/dL (8.5-10.1) 8.8 mg/dL (8.5-10.1) Triglycerides Level 100 mg/dL (0-150) Cholesterol Level 235 mg/dL (0-200) LDL Cholesterol, Calculated 165 mg/dL (0-100) VLDL Cholesterol, Calculated 20 mg/dL (0-40) Non-HDL Cholesterol Calculated 185 mg/dL (0-129) HDL Cholesterol 50 mg/dL (40-60) Cholesterol/HDL Ratio 4.7 Thyroid Stimulating Hormone (TSH) 1.118 uIU/mL (0.358-3.74) Laboratory Tests Test 08/10/16 04:30 White Blood Count 4.7 x10^3/uL (4.0-11.0) Red Blood Count 3.75 x10^6/uL (4.30-5.70) Hemoglobin 12.2 g/dL (13.0-17.5) Hematocrit 36.3 % (39.0-53.0) Mean Corpuscular Volume 97 fL (79-100) Mean Corpuscular Hemoglobin 33 pg (25-35) Mean Corpuscular Hemoglobin Concent 34 g/dL (31-37) Red Cell Distribution Width 14.7 % (11.5-14.5) Platelet Count 166 x10^3/uL (140-400) Neutrophils (%) (Auto) 52 % (31-73) Lymphocytes (%) (Auto) 28 % (24-48) Monocytes (%) (Auto) 16 % (0-9) Eosinophils (%) (Auto) 3 % (0-3) Basophils (%) (Auto) 1 % (0-3) Neutrophils # (Auto) 2.5 x10^3uL (1.8-7.7) Lymphocytes # (Auto) 1.3 x10^3/uL (1.0-4.8) Monocytes # (Auto) 0.8 x10^3/uL (0.0-1.1) Eosinophils # (Auto) 0.2 x10^3/uL (0.0-0.7) Basophils # (Auto) 0.0 x10^3/uL (0.0-0.2) Sodium Level 139 mmol/L (136-145) Potassium Level 3.8 mmol/L (3.5-5.1) Chloride Level 105 mmol/L (98-107) Carbon Dioxide Level 26 mmol/L (21-32) Anion Gap 8 (6-14) Blood Urea Nitrogen 26 mg/dL (8-26) Creatinine 1.5 mg/dL (0.7-1.3) Estimated GFR (Cockcroft-Gault) 44.3 Glucose Level 106 mg/dL (70-99) Calcium Level 8.8 mg/dL (8.5-10.1) Medications Current Medications Ondansetron HCl (Zofran) 4 mg PRN Q8HRS PRN IV NAUSEA/VOMITING; Start 08/08/16 at 13:00; Stop 08/09/16 at 12:59; Status DC Morphine Sulfate 2 mg PRN Q2HR PRN IV PAIN; Start 08/08/16 at 13:00; Stop at 12:59; Status DC Amlodipine Besylate (Norvasc) 2.5 mg DAILY PO Last administered on 08/10/16 09: 42; Start 08/09/16 at 09:00 Vitamin D (Vitamin D3) 1,000 unit BID PO Last administered on 08/10/16 09:43; Start 08/08/16 at 21:00 Citalopram Hydrobromide (CeleXA) 10 mg DAILY PO Last administered on 08/10/16 09:42; Start 08/09/16 at 09:00 Docusate Sodium (Colace) 100 mg DAILY PO Last administered on 08/10/16 09:42; Start 08/09/16 at 09:00 Donepezil HCl (Aricept) 10 mg QHS PO Last administered on 08/09/16 20:52; Start 08/08/16 at 21:00 Acetaminophen/ Hydrocodone Bitart (Lortab 5/325) 1 tab TID PO Last administered on 08/10/16 09:42; Start 08/08/16 at 21:00 Levothyroxine Sodium (Synthroid) 100 mcg DAILY07 PO Last administered on 09:41; Start 08/09/16 at 07:00 Lisinopril (Prinivil) 2.5 mg DAILY PO Last administered on 08/10/16 09:41; Start 08/09/16 at 09:00 Magnesium Hydroxide (Milk Of Magnesia) 2,400 mg PRN BID PRN PO CONSTIPATION; Start 08/08/16 at 17:45 Memantine (Namenda) 10 mg QHS PO Last administered on 08/09/16 20:52; Start 08/08/16 at 21:00 Metoprolol Succinate (Toprol Xl) 12.5 mg DAILY PO Last administered on 09:42; Start 08/09/16 at 09:00 Gabapentin (Neurontin) 300 mg DAILY PO Last administered on 08/10/16 09:42; Start 08/09/16 at 09:00 Cetirizine HCl (Zyrtec) 10 mg DAILY PO Last administered on 08/10/16 09:41; Start 08/09/16 at 09:00 Pantoprazole Sodium (Protonix) 40 mg DAILYAC PO Last administered on 08/10/16 09:41; Start 08/09/16 at 07:30 Ondansetron HCl (Zofran Odt) 8 mg PRN Q8HRS PRN PO NAUSEA; Start 08/08/16 at 18: 00 Enoxaparin Sodium (Lovenox 40mg Syringe) 40 mg Q24H SQ Last administered on 08/10 13:27; Start 08/09/16 at 12:00 Active Scripts Active Reported Multi Vitamin Daily (Multivitamin) 1 Each Tablet 1 Each PO Omeprazole 20 Mg Tablet.dr 1 Tab PO DAILY Namenda (Memantine Hcl) 10 Mg Tablet 1 Tab PO QHS Milk Of Magnesia (Magnesium Hydroxide) 400 Mg/5 Ml Oral.susp 400 Mg PO Fleet Enema (Na Phos,M-B/Na Phos,Di-Ba) 133 Ml Enema 1 Each RC ONCE Claritin (Loratadine) 10 Mg Tablet 1 Tab PO DAILY Zofran (Ondansetron Hcl) 8 Mg Tablet 1 Tab PO PRN Q8HRS PRN Metoprolol Succinate ( Xl ) (Metoprolol Succinate) 25 Mg Tab.er.24h 12.5 Mg PO DAILY Levothyroxine Sodium 100 Mcg Tablet 1 Tab PO DAILY Citalopram Hbr (Citalopram Hydrobromide) 10 Mg Tablet 1 Tab PO DAILY Robitussin Cough-Chest Dm Liq (Guaifenesin/Dextromethorphan) 118 Ml Liquid 5 Ml PO TID Hydrocodone-Apap 5-325 (Hydrocodone Bit/Acetaminophen) 1 Each Tablet 1 Tab PO TID Vitamin D3 (Cholecalciferol (Vitamin D3)) 1,000 Unit Tablet 1 Tab PO BID Colace (Docusate Sodium) 100 Mg Capsule 1 Cap PO DAILY Aricept (Donepezil Hcl) 10 Mg Tablet 1 Tab PO QHS Amlodipine Besylate 2.5 Mg Tablet 2.5 Mg PO DAILY Lisinopril 2.5 Mg Tablet 1 Tab PO DAILY Gabapentin 300 Mg Capsule 1 Cap PO DAILY Vitals/I & O Vital Sign - Last 24 Hours 08/09/16 08/09/16 08/09/16 08/10/16 19:00 20:00 23:00 02:56 Temp 98.4 97.9 97.7 98.4 97.9 97.7 Pulse 63 67 61 Resp 20 20 20 B/P (MAP) 134/68 (90) 125/60 (81) 146/72 (96) Pulse Ox 96 93 92 O2 Delivery Room Air Room Air Room Air Room Air 08/10/16 08/10/16 08/10/16 08/10/16 07:52 08:30 09:41 09:42 Temp 97.5 97.5 Pulse 58 58 58 Resp 20 B/P (MAP) 148/69 (95) 148/69 148/69 Pulse Ox 94 O2 Delivery Room Air Room Air 08/10/16 08/10/16 08/10/16 08/10/16 09:42 09:42 09:47 11:40 Temp 98.5 98.5 Pulse 58 72 58 Resp 20 B/P (MAP) 148/69 142/65 (90) Pulse Ox 94 92 O2 Delivery Room Air Room Air Intake and Output 08/09/16 08/09/16 08/10/16 15:00 23:00 07:00 Intake Total 625 ml Balance 625 ml Images EEG: Mild slowing of background activity, no epileptic activity. MAHOGANY BRAVO MD August 10, 2016 16:09
[2016-08-10] MEDS: DONEPEZIL HCL 10 MG TABLET. PO SCH (20:24)
[2016-08-10] MEDS: MEMANTINE 10 MG TABLET. PO SCH (20:24)
[2016-08-11 03:19] VITALS: BP 131/60
[2016-08-11] MEDS: LEVOTHYROXINE 100 MCG TABLET PO SCH (06:12)
[2016-08-11 07:50] VITALS: BP 115/61
[2016-08-11] MEDS: GABAPENTIN 300 MG CAPSULE. PO SCH (09:04)
[2016-08-11] MEDS: DOCUSATE SODIUM 100 MG CAPSULE. PO SCH (09:05)
[2016-08-11] MEDS: CITALOPRAM 10 MG TABLET. PO SCH (09:05)
[2016-08-11] MEDS: LISINOPRIL 2.5 MG TABLET PO SCH (09:05)
[2016-08-11] MEDS: amLODIPine BESYLATE 2.5 MG TABLET PO SCH (09:06)
[2016-08-11] MEDS: HYDROcodone/APAP 5/325MG 1 TAB TABLET PO SCH ×2 (09:06→15:13)
[2016-08-11] MEDS: CETIRIZINE HCL 10 MG TABLET. PO SCH (09:08)
[2016-08-11] MEDS: METOPROLOL SUCC 24HR ER 25 MG TAB.ER.24H. PO SCH (09:08)
[2016-08-11] MEDS: CHOLECALCIFEROL (VITAMIN D3) 1,000 UNIT TABLET PO SCH (09:08)
[2016-08-11] MEDS: PANTOPRAZOLE 40 MG TABLET.DR. PO SCH (09:12)
--- NOTE | 2016-08-11 10:05 | PDOC ---
PROGRESS NOTES Subjective Subjective no new problems Objective Objective Vital Signs Date Time Temp Pulse Resp B/P (MAP) Pulse Ox O2 Delivery O2 Flow Rate FiO2 08/11/16 09:08 56 115/61 08/11/16 09:06 Room Air 08/11/16 07:50 96.3 20 97 96.3 Intake and Output 08/11/16 07:00 Intake Total 630 ml Balance 630 ml Intake Oral 630 ml # Voids 5 Physical Exam Abdomen: Normal bowel sounds, Soft Heart: Regular rate, Normal S1 Extremities: No clubbing General: No acute distress HEENT: PERRLA Lungs: Clear to auscultation MUSCULOSKELETAL: No deformity Neck: Supple Neuro: Normal speech Psych/Mental Status: Mood NL COMMENT ch stasis dermatitis legs both Diagnosis Problem List Problems Medical Problems: (1) Facial asymmetry Status: Acute (2) Seizure Status: Acute Assessment Assessment Problems Medical Problems: (1) Facial asymmetry Status: Acute (2) Seizure Status: Acute FINAL IMPRESSION: 1. ? New onset of seizure ,neurology not impressed that it was a seizure, no need to start on meds,watch and see. 2. History of heart surgery, looks like? aortic valve surgery or bypass surgery. 3. Dementia. 4. Generalized weakness. 5. Hypertension. 6. Hyperlipidemia. 7.Stasis dermatitis both legs PLAN: EEG-ve for seizures. MRI brain -no lesions. CT chest -no lung mass. labs ok. spoke with family members , and son d/c back to [place] today,[facility]. Problems: Plan Plan of Care Problems Medical Problems: (1) Facial asymmetry Status: Acute (2) Seizure Status: Acute Comment Review of Relevant I have reviewed the following items michael (where applicable) has been applied. Vitals/I & O Vital Sign - Last 24 Hours 08/10/16 08/10/16 08/10/16 08/10/16 11:40 15:28 19:44 20:00 Temp 98.5 97.7 97.5 98.5 97.7 97.5 Pulse 58 58 64 Resp 20 20 16 B/P (MAP) 142/65 (90) 126/61 (82) 108/64 (79) Pulse Ox 92 95 90 O2 Delivery Room Air Room Air Room Air Room Air 08/10/16 08/10/16 08/11/16 08/11/16 20:24 23:07 03:19 07:50 Temp 96.6 97.5 96.3 96.6 97.5 96.3 Pulse 65 65 56 Resp 16 16 20 20 B/P (MAP) 118/61 (80) 131/60 (83) 115/61 (79) Pulse Ox 93 99 97 O2 Delivery Room Air Room Air Room Air Room Air 08/11/16 08/11/16 08/11/16 08/11/16 09:05 09:06 09:06 09:08 Pulse 56 56 56 B/P (MAP) 115/61 115/61 115/61 O2 Delivery Room Air Intake and Output 08/10/16 08/10/16 08/11/16 15:00 23:00 07:00 Intake Total 450 ml 180 ml Balance 450 ml 180 ml STANLEY OCONNELL MD August 11, 2016 10:05
[2016-08-11 10:49] VITALS: BP 117/65
[2016-08-11] MEDS: ENOXAPARIN 40 MG/0.4 ML SYRINGE. SQ SCH (12:45)
[2016-08-11] MEDS ORDERED: PANT40TA5 PO (14:32)
[2016-08-11] MEDS ORDERED: AMLO2.5T PO (14:34)
[2016-08-11] MEDS ORDERED: MAGN2400 PO (14:35)
--- NOTE | 2016-08-11 15:19 | PDOC ---
Provider Note Provider Note Discharge summary dictated. #[id number] STANLEY OCONNELL MD August 11, 2016 15:19
--- NOTE | 2016-08-11 16:46 | PDOC ---
PROGRESS NOTES Assessment Assessment IMPRESSION: Seizure x 1 . Cellulitis. HLD HTN Renal failure. Dementia. Obesity. RECOMMENDATIONS/PLAN: No AED is recommended at the present time for a single seizure. Brain MRI performed showed no acute findings. EEG performed showed no seizure activity. Dementia treatment started. Treat medical diseases. OT/PT. SUBJECTIVE: No new complaints. OBJECTIVE: No further seizures. Past Medical History Cardiovascular: HTN, Hyperlipidemia, Aortic stenosis CENTRAL NERVOUS SYSTEM: Dementia, Periperal neuropathy, TIA GI: GERD Heme/Onc: Anemia NOS Musculoskeletal: Osteoarthritis Renal/: UTI, Prostate Ca., Urinary Incontinence Endocrine: Hypothyroidism Dermatology: Cellulitis (admitted here last month) Past Surgical History Other (tumor left face, skin cancer removal) Family History No pertinent hx Social History , lives in detention, no alcohol, tobacco ALLERGY: Statin. MEDICATIONS: Refer to MAR REVIEW OF SYSTEMS: Constitutional: No malnutrition, weight loss, cachexia. Head: No traumatic brain or head injury. Skin: No edema, or rash. Ear: No infection, tinnitus. Eyes: No vision loss, or diplopia. Nose: No bleeding or purulent discharges. Hearing: Hearing loss. Neck: No injury. Cardiac: HLD, HTN Pulmonary: No COPD. GI: No GI Ulcer, GI bleeding Urinary/genital: UTI. Endocrine: No cousin face, craniofacial dysmorphism, polydactyly. Skeletomuscular: No muscular atrophy, deformity. Neurological: see HP. Psychiatric: Denies drug use/abuse. Otherwise, not [id number] review of systems. PHYSICAL EXAMINATION: General appearance in no acute distress. HEENT: Normocephalic and nontraumatic. Eyes, nose, ears, and throat are unremarkable. Hearing decrease. Neck is supple. No lymphadenopathy. No Crepitus. Cardiovascular: S1, S2, regular rate and rhythm. Pulmonary: Clear to auscultation bilaterally. Abdomen: Bowel sounds are positive. Extremities: No rash, lesions, or edema. No restriction of range of motion NEUROLOGICAL EXAMINATION: Drowsiness. Not oriented to time, but knows place and person. PERRL. EOMI. CN: no focal findings. Muscle tone: within normal. Muscle strength: 4+ DTR: 2- Plantar reflex: Neutral response bilaterally Gait: not examined in bed. Sensory exam: no abnormal findings. No acute cerebellar signs elicited. F-T-N test not performed due to not follow commands. Objective Objective Vital Signs Date Time Temp Pulse Resp B/P (MAP) Pulse Ox O2 Delivery O2 Flow Rate FiO2 08/11/16 10:49 97.1 56 20 117/65 (82) 97 Room Air 97.1 Intake and Output 08/11/16 07:00 Intake Total 630 ml Balance 630 ml Intake Oral 630 ml # Voids 5 Vitals Signs Vitals VS - Last 72 Hours, by Label Date Time Temp Pulse Resp B/P (MAP) Pulse Ox O2 Delivery O2 Flow Rate FiO2 08/11/16 10:49 97.1 56 20 117/65 (82) 97 Room Air 97.1 08/11/16 10:06 Room Air 08/11/16 09:08 56 115/61 08/11/16 09:06 Room Air 08/11/16 09:06 56 115/61 08/11/16 09:05 56 115/61 08/11/16 07:50 96.3 56 20 115/61 (79) 97 Room Air 96.3 08/11/16 07:50 Room Air 08/11/16 03:19 97.5 65 20 131/60 (83) 99 Room Air 97.5 08/10/16 23:07 96.6 65 16 118/61 (80) 93 Room Air 96.6 08/10/16 20:24 16 Room Air 08/10/16 20:00 Room Air 08/10/16 19:44 97.5 64 16 108/64 (79) 90 Room Air 97.5 08/10/16 15:28 97.7 58 20 126/61 (82) 95 Room Air 97.7 08/10/16 11:40 98.5 58 20 142/65 (90) 92 Room Air 98.5 08/10/16 09:47 72 08/10/16 09:42 58 148/69 08/10/16 09:42 94 Room Air 08/10/16 09:42 58 148/69 08/10/16 09:41 58 148/69 08/10/16 08:30 Room Air 08/10/16 07:52 97.5 58 20 148/69 (95) 94 Room Air 97.5 Comment Review of Relevant I have reviewed the following items michael (where applicable) has been applied. SATHYA CARRANZA MD August 11, 2016 16:46
--- NOTE | 2016-08-11 23:27 | DS ---
DATE OF DISCHARGE: 08/11/2016 REASON FOR ADMISSION TO THE HOSPITAL: Questionable seizure. CONSULTATION: Neurology, Dr. Reyes. PROCEDURES DONE: 1. CT head. 2. MRI of the brain. 3. EEG. COMPLICATIONS NOTED: None. HOSPITAL COURSE: The patient is an 85-year-old male with history of dementia, history of previous heart surgery, looks like heart bypass surgery. [facility] a [facility], [facility]. He was noticed to have jerky movement, no loss of consciousness, was brought to the hospital. CT head was negative. MRI of the brain was negative. EEG was negative for active seizures, seen by Neurology and does not think it was true seizure; however, he did not want to put any medications, watch and see. The patient was in the hospital last month for leg cellulitis and chronic lymphedema. Venous stenosis improved and he also had an echocardiogram that shows 60% ejection fraction in last 6 months. FINAL IMPRESSION: 1. Jerky like movement, pseudoseizures. 2. History of coronary artery disease,h/o bypass surgery. 3. Dementia, progressive. 4. Hypertension, hyperlipidemia, mod aortic stenosis, prostate cancer, hypothyroidism, chronic venous insufficiency. DISPOSITION: Back to the [facility] and see [facility] for discharge medications. No need to start on anticonvulsants at this time. STANLEY OCONNELL MD DR: DERREK/shani JOB#: [id number] / [id number] MARÍA
== END 2016-08-11 15:00 ==
LOC: ER 11:40 → 6 SOUTH 12:55
PROVIDERS: ADMIT Internal Medicine; ATTEND Internal Medicine
DX: F44.5 Conversion disorder with seizures or convulsions (principal); I25.10 Atherosclerotic heart disease of native coronary artery without angina pectoris; F03.90 Unspecified dementia, unspecified severity, without behavioral disturbance, psychotic disturbance, mood disturbance, and anxiety; I10 Essential (primary) hypertension; E78.5 Hyperlipidemia, unspecified; I35.0 Nonrheumatic aortic (valve) stenosis; E03.9 Hypothyroidism, unspecified; I87.2 Venous insufficiency (chronic) (peripheral); K21.9 Gastro-esophageal reflux disease without esophagitis; M19.90 Unspecified osteoarthritis, unspecified site; R53.1 Weakness; L03.90 Cellulitis, unspecified; E66.9 Obesity, unspecified; N19 Unspecified kidney failure; G62.9 Polyneuropathy, unspecified; R29.810 Facial weakness; E78.00 Pure hypercholesterolemia, unspecified; Z85.46 Personal history of malignant neoplasm of prostate; Z85.828 Personal history of other malignant neoplasm of skin; Z86.73 Personal history of transient ischemic attack (TIA), and cerebral infarction without residual deficits
CPT/HCPCS: 36415; 70450; 70551; 71010; 71250; 80048; 80061; 80076; 81001; 83605; 83690; 83880; 84443; 84484; 85027; 87641; 92610; 93005; 95816; 96372; 97162; 97165; 99285; G0378; G0481; G8978; G8979; G8987; G8988; J1650; G0379

== ENCOUNTER 2017-10-18 13:37 | Inpatient (IN) | payer MEDICARE, OTHER ==
[2017-10-18 13:48] LABS: POC GLUCOSE 112 mg/dL (70-99)
[2017-10-18 14:23] LABS: ADD MAN DIFF? NO
[2017-10-18 14:28] LABS: BASO % 0 % (0-3); EOS # 0.1 x10^3/uL (0.0-0.7); EOS % 2 % (0-3); HEMATOCRIT 32.3 % (39.0-53.0); HEMOGLOBIN 11.2 g/dL (13.0-17.5); LYMPH # 1.2 x10^3/uL (1.0-4.8); LYMPH % 23 % (24-48); MEAN CORPUSCULAR HEMOGLOBIN 34 pg (25-35); MEAN CORPUSCULAR HGB CONC 35 g/dL (31-37); MEAN CORPUSCULAR VOLUME 98 fL (79-100); MONO # 0.6 x10^3/uL (0.0-1.1); MONO % 11 % (0-9); NEUT # 3.5 x10^3uL (1.8-7.7); NEUT % 64 % (31-73); PLATELET COUNT 202 x10^3/uL (140-400); RED BLOOD COUNT 3.29 x10^6/uL (4.30-5.70); RED CELL DISTRIBUTION WIDTH 14.5 % (11.5-14.5); WHITE BLOOD COUNT 5.4 x10^3/uL (4.0-11.0)
[2017-10-18] MEDS: IV NORMAL SALINE 500ML BAG 500 ML IV (14:30)
[2017-10-18 14:41] LABS: ANION GAP 13 (6-14); BLOOD UREA NITROGEN 41 mg/dL (8-26); BUN/CREATININE RATIO 23 (6-20); CALCIUM 8.1 mg/dL (8.5-10.1); CARBON DIOXIDE 22 mmol/L (21-32); CHLORIDE 106 mmol/L (98-107); CREATININE 1.8 mg/dL (0.7-1.3); GFR 35.8; GLUCOSE 120 mg/dL (70-99); POTASSIUM 3.7 mmol/L (3.5-5.1); SODIUM 141 mmol/L (136-145)
[2017-10-18 14:47] LABS: TROPONINI < 0.017 ng/mL (0.000-0.055)
[2017-10-18 14:47] LABS: ALBUMIN/GLOBULIN RATIO 0.8 (1.0-1.7); ALK PHOS 88 U/L (46-116); ALT (SGPT) 23 U/L (16-63); AST (SGOT) 21 U/L (15-37); MAGNESIUM 1.8 mg/dL (1.8-2.4); TOTAL BILIRUBIN 0.3 mg/dL (0.2-1.0); TOTAL PROTEIN 6.9 g/dL (6.4-8.2)
[2017-10-18 14:54] LABS: NT-PRO BNP 885 pg/mL (0-449)
[2017-10-18 14:54] LABS: CKMB INDEX 1.4 % (0-4); CKMB MASS 1.4 ng/mL (0.0-3.6); CREATINE KINASE 100 U/L (39-308)
[2017-10-18 15:10] LABS: PARTIAL THROMBOPLASTIN TIME 30 SEC (24-38); PROTHROMBIN TIME PATIENT 12.9 SEC (11.7-14.0)
[2017-10-18 15:13] LABS: AMMONIA 10 mcmol/L (11-34)
[2017-10-18 15:35] LABS: BILIRUBIN,URINE NEGATIVE (NEG); CLARITY,URINE CLOUDY; COLOR,URINE YELLOW; GLUCOSE,URINE NEGATIVE (NEG); NITRITE,URINE NEGATIVE (NEG); PROTEIN,URINE NEGATIVE (NEG-TRACE); UROBILINOGEN,URINE 0.2 mg/dL (0.2 mg/dL)
[2017-10-18 15:42] LABS: BARBITURATES NEG (NEG); BENZODIAZEPINES NEG (NEG); CANNABINOIDS NEG (NEG); COCAINE NEG (NEG); METHADONE NEG (NEG); OPIATES NEG (NEG); PHENCYCLIDINE NEG (NEG)
[2017-10-18 15:44] LABS: AMPHETAMINE/METHAMPHETAMINE NEG (NEG); ETHANOL, URINE NEG (NEG)
[2017-10-18 15:50] LABS: BACTERIA,URINE MANY /HPF (0-FEW); RBC,URINE 0 /HPF (0-2); SQUAMOUS EPITHELIAL CELL,UR FEW /LPF; WBC,URINE >40 /HPF (0-4)
[2017-10-18] MEDS ORDERED: ACETAMINOPHEN 325 MG TABLET. PO (20:45)
[2017-10-18] MEDS: DONEPEZIL HCL 10 MG TABLET. PO (21:37)
[2017-10-18] MEDS: LACTOBACILLUS RHAMNOSUS GG 1 CAPSULE. PO (21:37)
[2017-10-18] MEDS: MEMANTINE 10 MG TABLET. PO (21:37)
[2017-10-18] MEDS: CHOLECALCIFEROL (VITAMIN D3) 1,000 UNIT TABLET PO (21:37)
[2017-10-19] MEDS: LEVOTHYROXINE 150 MCG TABLET PO (06:07)
[2017-10-19] MEDS: PANTOPRAZOLE 40 MG TABLET.DR. PO (08:27)
[2017-10-19] MEDS: LOSARTAN POTASSIUM 50 MG TABLET. PO (08:28)
[2017-10-19] MEDS: METOPROLOL SUCC 24HR ER 25 MG TAB.ER.24H. PO (08:28)
[2017-10-19] MEDS: amLODIPine BESYLATE 5 MG TABLET PO (08:29)
[2017-10-19] MEDS: LACTOBACILLUS RHAMNOSUS GG 1 CAPSULE. PO ×2 (08:29→21:17)
[2017-10-19] MEDS: CHOLECALCIFEROL (VITAMIN D3) 1,000 UNIT TABLET PO ×2 (08:29→21:17)
[2017-10-19] MEDS: ASPIRIN ENTERIC COATED 81 MG TABLET.DR. PO (08:29)
[2017-10-19] MEDS: DOCUSATE SODIUM 100 MG CAPSULE. PO (08:34)
[2017-10-19] MEDS ORDERED: METOPROLOL TART IMMED RELEASE 25 MG TABLET. PO (09:00)
[2017-10-19] MEDS: IV 1/2 NORMAL SALINE 1,000 ML IV ×2 (09:36→22:12)
[2017-10-19] MEDS: cefTRIAXone IV Push 1 GM VIAL. IVP (09:36)
[2017-10-19] MEDS: DONEPEZIL HCL 10 MG TABLET. PO (21:17)
[2017-10-19] MEDS: MEMANTINE 10 MG TABLET. PO (21:17)
[2017-10-19] MEDS: NYSTATIN TOPICAL POWDER 15GM BOTTLE. TP (21:21)
[2017-10-20 04:58] LABS: ANION GAP 10 (6-14); BLOOD UREA NITROGEN 32 mg/dL (8-26); CALCIUM 8.6 mg/dL (8.5-10.1); CARBON DIOXIDE 23 mmol/L (21-32); CHLORIDE 106 mmol/L (98-107); CREATININE 1.5 mg/dL (0.7-1.3); GFR 44.2; GLUCOSE 99 mg/dL (70-99); POTASSIUM 3.8 mmol/L (3.5-5.1); SODIUM 139 mmol/L (136-145)
[2017-10-20] MEDS: LEVOTHYROXINE 150 MCG TABLET PO (06:16)
[2017-10-20] MEDS: PANTOPRAZOLE 40 MG TABLET.DR. PO ×2 (06:22→08:47)
[2017-10-20] MEDS: IV 1/2 NORMAL SALINE 1,000 ML IV ×2 (06:29→19:56)
[2017-10-20] MEDS: LACTOBACILLUS RHAMNOSUS GG 1 CAPSULE. PO ×2 (08:46→20:20)
[2017-10-20] MEDS: ASPIRIN ENTERIC COATED 81 MG TABLET.DR. PO (08:46)
[2017-10-20] MEDS: LOSARTAN POTASSIUM 50 MG TABLET. PO (08:47)
[2017-10-20] MEDS: METOPROLOL SUCC 24HR ER 25 MG TAB.ER.24H. PO (08:47)
[2017-10-20] MEDS: amLODIPine BESYLATE 5 MG TABLET PO (08:47)
[2017-10-20] MEDS: DOCUSATE SODIUM 100 MG CAPSULE. PO (08:48)
[2017-10-20] MEDS: CHOLECALCIFEROL (VITAMIN D3) 1,000 UNIT TABLET PO ×2 (08:48→20:20)
[2017-10-20] MEDS: cefTRIAXone IV Push 1 GM VIAL. IVP (08:48)
[2017-10-20] MEDS: NYSTATIN TOPICAL POWDER 15GM BOTTLE. TP (08:48)
[2017-10-20] MEDS: VITS A & D/LANOLIN TOPICAL OINTMENT 56GM TUBE. TP (13:29)
[2017-10-20] MEDS: MEMANTINE 10 MG TABLET. PO (20:20)
[2017-10-20] MEDS: DONEPEZIL HCL 10 MG TABLET. PO (20:20)
[2017-10-21 06:06] LABS: ANION GAP 11 (6-14); BLOOD UREA NITROGEN 29 mg/dL (8-26); CALCIUM 8.7 mg/dL (8.5-10.1); CARBON DIOXIDE 23 mmol/L (21-32); CHLORIDE 106 mmol/L (98-107); CREATININE 1.6 mg/dL (0.7-1.3); GFR 40.9; GLUCOSE 95 mg/dL (70-99); POTASSIUM 3.6 mmol/L (3.5-5.1); SODIUM 140 mmol/L (136-145)
[2017-10-21] MEDS: LEVOTHYROXINE 150 MCG TABLET PO (06:44)
[2017-10-21] MEDS: amLODIPine BESYLATE 5 MG TABLET PO (08:05)
[2017-10-21] MEDS: LACTOBACILLUS RHAMNOSUS GG 1 CAPSULE. PO ×2 (08:05→21:12)
[2017-10-21] MEDS: ASPIRIN ENTERIC COATED 81 MG TABLET.DR. PO (08:05)
[2017-10-21] MEDS: CHOLECALCIFEROL (VITAMIN D3) 1,000 UNIT TABLET PO ×2 (08:05→21:12)
[2017-10-21] MEDS: METOPROLOL SUCC 24HR ER 25 MG TAB.ER.24H. PO (08:06)
[2017-10-21] MEDS: cefTRIAXone IV Push 1 GM VIAL. IVP (08:07)
[2017-10-21] MEDS: LOSARTAN POTASSIUM 50 MG TABLET. PO (08:07)
[2017-10-21] MEDS: DOCUSATE SODIUM 100 MG CAPSULE. PO (08:07)
[2017-10-21] MEDS: IV 1/2 NORMAL SALINE 1,000 ML IV ×2 (14:05→23:59)
[2017-10-21] MEDS: DONEPEZIL HCL 10 MG TABLET. PO (21:12)
[2017-10-21] MEDS: MEMANTINE 10 MG TABLET. PO (21:13)
[2017-10-22] MEDS: LEVOTHYROXINE 150 MCG TABLET PO (05:51)
[2017-10-22] MEDS: PANTOPRAZOLE 40 MG TABLET.DR. PO (05:51)
[2017-10-22] MEDS: DOCUSATE SODIUM 100 MG CAPSULE. PO (09:00)
[2017-10-22] MEDS: cefTRIAXone IV Push 1 GM VIAL. IVP (09:19)
[2017-10-22] MEDS: VITS A & D/LANOLIN TOPICAL OINTMENT 56GM TUBE. TP (09:19)
[2017-10-22] MEDS: CHOLECALCIFEROL (VITAMIN D3) 1,000 UNIT TABLET PO ×2 (09:20→20:14)
[2017-10-22] MEDS: LACTOBACILLUS RHAMNOSUS GG 1 CAPSULE. PO ×2 (09:20→20:12)
[2017-10-22] MEDS: LOSARTAN POTASSIUM 50 MG TABLET. PO (09:20)
[2017-10-22] MEDS: amLODIPine BESYLATE 5 MG TABLET PO (09:20)
[2017-10-22] MEDS: ASPIRIN ENTERIC COATED 81 MG TABLET.DR. PO (09:20)
[2017-10-22] MEDS: METOPROLOL SUCC 24HR ER 25 MG TAB.ER.24H. PO (09:21)
[2017-10-22] MEDS: IV 1/2 NORMAL SALINE 1,000 ML IV (15:28)
[2017-10-22] MEDS: DONEPEZIL HCL 10 MG TABLET. PO (20:12)
[2017-10-22] MEDS: MEMANTINE 10 MG TABLET. PO (20:12)
[2017-10-23] MEDS: IV 1/2 NORMAL SALINE 1,000 ML IV (00:09)
[2017-10-23] MEDS: LEVOTHYROXINE 150 MCG TABLET PO (05:44)
[2017-10-23] MEDS: LACTOBACILLUS RHAMNOSUS GG 1 CAPSULE. PO (08:20)
[2017-10-23] MEDS: PANTOPRAZOLE 40 MG TABLET.DR. PO (08:21)
[2017-10-23] MEDS: ASPIRIN ENTERIC COATED 81 MG TABLET.DR. PO (08:21)
[2017-10-23] MEDS: DOCUSATE SODIUM 100 MG CAPSULE. PO (08:21)
[2017-10-23] MEDS: amLODIPine BESYLATE 5 MG TABLET PO (08:22)
[2017-10-23] MEDS: LOSARTAN POTASSIUM 50 MG TABLET. PO (08:22)
[2017-10-23] MEDS: cefTRIAXone IV Push 1 GM VIAL. IVP (08:23)
[2017-10-23] MEDS: CHOLECALCIFEROL (VITAMIN D3) 1,000 UNIT TABLET PO (08:23)
[2017-10-23] MEDS: METOPROLOL SUCC 24HR ER 25 MG TAB.ER.24H. PO (08:23)
[2017-10-23 14:14] LABS: MRSA BY PCR Positive (Negative)
== END 2017-10-23 11:12 | DRG 689 ==
LOC: ER 13:37 → 2 SOUTH 18:03
PROVIDERS: Family Medicine
DX: N39.0 Urinary tract infection, site not specified (principal); G92 Toxic encephalopathy; N17.9 Acute kidney failure, unspecified; I25.10 Atherosclerotic heart disease of native coronary artery without angina pectoris; F03.90 Unspecified dementia, unspecified severity, without behavioral disturbance, psychotic disturbance, mood disturbance, and anxiety; E78.00 Pure hypercholesterolemia, unspecified; E03.9 Hypothyroidism, unspecified; K21.9 Gastro-esophageal reflux disease without esophagitis; G62.9 Polyneuropathy, unspecified; M19.90 Unspecified osteoarthritis, unspecified site; E78.5 Hyperlipidemia, unspecified; I48.0 Paroxysmal atrial fibrillation; I12.9 Hypertensive chronic kidney disease with stage 1 through stage 4 chronic kidney disease, or unspecified chronic kidney disease; N18.3 Chronic kidney disease, stage 3 (moderate); I44.0 Atrioventricular block, first degree; R32 Unspecified urinary incontinence; I87.8 Other specified disorders of veins; I35.0 Nonrheumatic aortic (valve) stenosis; B96.20 Unspecified Escherichia coli [E. coli] as the cause of diseases classified elsewhere; Z85.828 Personal history of other malignant neoplasm of skin; Z88.8 Allergy status to other drugs, medicaments and biological substances; Z95.1 Presence of aortocoronary bypass graft; Z86.73 Personal history of transient ischemic attack (TIA), and cerebral infarction without residual deficits; Z85.46 Personal history of malignant neoplasm of prostate
CPT/HCPCS: 36415; 70450; 71045; 80048; 80053; 80307; 81001; 82140; 82553; 82962; 83735; 83880; 84484; 85025; 85610; 85730; 87086; 87641; 93005; 93306; 96361; 96365; 97166-GO; 99285; 99285-25; J0690; J0696; J1650; J7040; P9612